=== PATIENT | male | born 1950 | race Caucasian/White ===

== ENCOUNTER 2017-03-28 00:49 | Emergency (ER) | payer MEDICARE ==
[~2017-03-28] VITALS: Ht 188 cm; Wt 90.0 kg
[~2017-03-28 00:49] MED LIST: ASPI-496 PO; ASPI-515 PO; CLOP75TA22 PO; DEXA2TAB PO; FAMO-79 PO; GEMF600T3 PO; HYDR-3240 PO; LEVE500T53 PO; METO25TA35 PO; MILK THISTLE PO; MULT1TAB60 PO; NIAC500T PO; OMEP40CA3 PO; OXYC-302 PO; TAMS0.4C2 PO; UBID100C11 PO; UBID100C24 PO; VITA1TAB3 PO
[2017-03-28] MEDS ORDERED: ASPI81TA50 PO (01:09)
[2017-03-28] MEDS ORDERED: LORA10TA72 PO (01:09)
[2017-03-28] MEDS ORDERED: MORPHINE SULFATE 4 MG/ML, 1ML IVPush PRN (01:30)
[2017-03-28] MEDS ORDERED: ONDANSETRON 2MG/ML, 2ML IVPush ONE (01:30)
[2017-03-28] MEDS ORDERED: MORPHINE SULFATE 4 MG/ML, 1ML ONE (01:30)
[2017-03-28] MEDS ORDERED: ONDANSETRON 2MG/ML, 2ML ONE (01:31)
[2017-03-28 01:48] LABS: ASPARTATE AMINO TRANSFERASE 11 U/L (15-37); BLOOD UREA NITROGEN 13 mg/dL (7-18)
[2017-03-28 04:10] VITALS: BP 142/89
[2017-03-28] MEDS ORDERED: OXYcodone/APAP 5/325MG TABLET ONE (04:12)
[2017-03-28] MEDS ORDERED: OXYcodone/APAP 5/325MG TABLET PO ONE (04:30)
== END 2017-03-28 04:18 | disposition home or self-care (01) ==
LOC: ED 02:12
DX: K40.91 Unilateral inguinal hernia, without obstruction or gangrene, recurrent (principal); R10.32 Left lower quadrant pain; I10 Essential (primary) hypertension
CPT/HCPCS: 36415; 74176; 80053; 81003; 83690; 85025; 96374; 96375; 99285; J2405

== ENCOUNTER 2017-04-05 13:28 | Day surgery (SDC) | payer MEDICARE ==
[~2017-04-05] VITALS: Ht 188 cm; Wt 89.5 kg
[~2017-04-05 13:28] MED LIST changes: +ASPI81TA50 PO; +GLUCOSAMINE PO; +LORA-702 PO; +LORA10TA72 PO; +MAGNESIUM PO; +METO25TA91 PO; +OXYC-229 PO; +POTASSIUM PO
[2017-04-05] MEDS ORDERED: LACTATED RINGERS 1,000 ML IV SCH (13:51)
[2017-04-05 14:10] VITALS: BP 159/102
[2017-04-05] MEDS ORDERED: EPINEPHRINE 1 MG/ML, 1ML ONE (14:12)
[2017-04-05] MEDS ORDERED: BUPIVACAINE/PF 0.5% ONE (14:12)
[2017-04-05 14:18] VITALS: BP 156/103
[2017-04-05] MEDS ORDERED: DEXAMETHASONE 4 MG/ML, 1ML ONE (15:09)
[2017-04-05] MEDS ORDERED: CEFAZOLIN 1,000 MG ONE (15:09)
[2017-04-05] MEDS ORDERED: PROPOFOL 10 MG/ML, 20ML ONE (15:09)
[2017-04-05] MEDS ORDERED: ROCURONIUM 10 MG/ML ONE (15:09)
[2017-04-05] MEDS ORDERED: ONDANSETRON 2MG/ML, 2ML ONE (15:09)
[2017-04-05] MEDS ORDERED: FENTANYL PF 100 MCG/2ML ONE ×2 (15:10→16:35)
[2017-04-05] MEDS ORDERED: HYDROmorphone 1 MG/ML, 1ML ONE ×2 (15:10→17:12)
[2017-04-05] MEDS ORDERED: hydrALAzine 20 MG/ML, 1ML IV PRN (16:00)
[2017-04-05] MEDS ORDERED: OXYcodone 5 MG/5 ML ORAL.SOL UDC PO PRN (16:00)
[2017-04-05] MEDS ORDERED: MIDAZOLAM 1 MG/ML, 2ML IV PRN (16:00)
[2017-04-05] MEDS ORDERED: MEPERIDINE/PF 25MG/0.5ML IVPush PRN (16:00)
[2017-04-05] MEDS ORDERED: ONDANSETRON 2MG/ML, 2ML IVPush PRN (16:00)
[2017-04-05] MEDS ORDERED: PROMETHAZINE 25 MG/ML, 1ML IV PRN (16:00)
[2017-04-05] MEDS ORDERED: OXYcodone 5 MG/5 ML ORAL.SOL UDC ONE (16:35)
[2017-04-05] MEDS: FENTANYL PF 100 MCG/2ML IV PRN ×2 (16:38→16:52)
[2017-04-05] MEDS ORDERED: LABETALOL 5MG/ML, 20ML ONE (17:03)
[2017-04-05] MEDS: LABETALOL 5MG/ML, 20ML IV PRN ×3 (17:06→17:32)
[2017-04-05] MEDS: HYDROmorphone 1 MG/ML, 1ML IV PRN ×2 (17:14→17:23)
[2017-04-05] MEDS ORDERED: hydrALAzine 20 MG/ML, 1ML ONE (17:34)
[2017-04-05] MEDS ORDERED: METOPROLOL SUCCINATE 25 MG TAB.ER.24H PO ONE ×2 (19:30)
== END 2017-04-05 20:05 ==
LOC: STAR 13:28 → OUT 20:05
PROVIDERS: ATTEND Surgery
DX: K40.90 Unilateral inguinal hernia, without obstruction or gangrene, not specified as recurrent (principal); K43.9 Ventral hernia without obstruction or gangrene; D17.6 Benign lipomatous neoplasm of spermatic cord; I10 Essential (primary) hypertension; Z87.891 Personal history of nicotine dependence; K21.9 Gastro-esophageal reflux disease without esophagitis; Z91.09 Other allergy status, other than to drugs and biological substances
CPT/HCPCS: 49650; 49652; 93005; C1781; J0171; J0360; J0690; J1100; J1170; J2405; J2704; J3010; J3490; J7120; S2900

== ENCOUNTER → 2018-09-02 | Outpatient (CLI) | payer MEDICARE ==
[~2018-09-02] MED LIST changes: -CLOP75TA22 PO; +CLOP75TA52 PO; -GEMF600T3 PO; +GEMF600T4 PO; -OXYC-229 PO; +OXYC-307 PO; -UBID100C11 PO; +UBID100C41 PO
== END | disposition home or self-care (01) ==
LOC: CFH 07:55
PROVIDERS: ATTEND Internal Medicine Cardiovascular Disease
DX: I10 Essential (primary) hypertension (principal); Z98.61 Coronary angioplasty status
CPT/HCPCS: 78452; 93017; A9502

== ENCOUNTER 2019-12-08 20:14 | Inpatient (IN) | payer MEDICARE ==
[~2019-12-08] VITALS: Ht 188 cm; Wt 92.0 kg
[~2019-12-08 20:14] MED LIST changes: -GEMF600T4 PO; +GEMF600T8 PO
[2019-12-08 20:40] LABS: BASOPHILS # (AUTO) 0.05 x10^3/uL (0-0.1); BASOPHILS % (AUTO) 1 % (0-1); EOSINOPHILS # (AUTO) 0.06 x10^3/uL (0-0.4); EOSINOPHILS % (AUTO) 1 % (1-7); LYMPHOCYTES % (AUTO) 39 % (22-44); MD NO; MEAN CORPUSCULAR HEMOGLOBIN 33.9 pg (27.5-34.5); MEAN CORPUSCULAR HGB CONC 34.2 g/dL (33.2-36.2); MEAN CORPUSCULAR VOLUME 99.1 fL (81-97); MEAN PLATELET VOLUME 7.2 fL (7.4-10.4); MONOCYTES # (AUTO) 0.67 x10^3/uL (0.2-0.8); MONOCYTES % (AUTO) 10 % (2-9); NEUTROPHILS # (AUTO) 3.43 x10^3/uL (1.8-6.8); NEUTROPHILS % (AUTO) 50 % (42-75); PLATELET COUNT 197 x10^3/uL (130-400); RED BLOOD COUNT 4.59 x10^6/uL (4.38-5.82); RED CELL DISTRIBUTION WIDTH 15.2 % (9.4-14.8)
[2019-12-08 20:51] LABS: ALANINE AMINOTRANSFERASE 128 U/L (12-78); ALBUMIN 4.3 g/dL (3.4-5.0); ANION GAP 10 mmol/L (5-15); CALCIUM 8.8 mg/dL (8.5-10.1); CHLORIDE 105 mmol/L (98-107); CREATININE 0.83 mg/dL (0.7-1.3)
[2019-12-08 20:55] LABS: ALKALINE PHOSPHATASE 67 U/L (45-117); BILIRUBIN,TOTAL 1.3 mg/dL (0.2-1.0); TROPONIN I < 0.015 ng/mL (0.000-0.045)
--- NOTE | 2019-12-08 22:58 | NUR ---
PT RESTING IN BED, PT HAS NO COMPLAINTS AT THIS TIME.
[2019-12-09] MEDS: SODIUM CHLORIDE 0.9% 1,000 ML IV SCH ×2 (00:16→10:16)
[2019-12-09] MEDS ORDERED: ONDANSETRON ODT 4 MG PO PRN (00:30)
[2019-12-09] MEDS ORDERED: POLYETHYLENE GLYCOL 17 GM PACKET PO PRN (00:30)
[2019-12-09] MEDS ORDERED: BISACODYL 10 MG SUPP PR PRN (00:30)
--- NOTE | 2019-12-09 01:13 | NUR ---
shavon baxter pt
[2019-12-09] MEDS: THIAMINE 100MG TABLET PO SCH ×2 (02:02→08:07)
[2019-12-09 03:13] VITALS: BP 137/89
[2019-12-09 06:13] VITALS: BP 113/69
[2019-12-09] MEDS ORDERED: LEVETIRACETAM 500 MG TABLET ONE (08:18)
[2019-12-09] MEDS ORDERED: LORazepam 2 MG/ML, 1ML IV PRN ×5 (08:30)
[2019-12-09] MEDS ORDERED: MULTIVITAMIN 1 TABLET PO SCH (09:00)
[2019-12-09] MEDS ORDERED: FOLIC ACID 1 MG TABLET PO SCH (09:00)
[2019-12-09] MEDS ORDERED: SENNA/DOCUSATE TABLET PO SCH (09:00)
[2019-12-09] MEDS ORDERED: METOPROLOL SUCCINATE 25 MG TAB.ER.24H PO SCH (09:00)
[2019-12-09] MEDS ORDERED: GEMFIBROZIL 600 MG TABLET PO SCH (09:00)
[2019-12-09] MEDS ORDERED: OMEPRAZOLE 20 MG CAPSULE.DR PO SCH (09:00)
[2019-12-09] MEDS ORDERED: LEVETIRACETAM 500 MG TABLET PO SCH (09:00)
[2019-12-09] MEDS ORDERED: TAMSULOSIN 0.4 MG CAP.ER.24H PO SCH (09:00)
[2019-12-09 09:24] LABS: ALBUMIN 4.2 g/dL (3.4-5.0); BILIRUBIN, DIRECT 0.4 mg/dL (0.1-0.2)
[2019-12-09 09:26] LABS: BILIRUBIN,INDIRECT 1.3 mg/dL (0.0-2.0); BILIRUBIN,TOTAL 1.7 mg/dL (0.2-1.0); TOTAL PROTEIN 8.5 g/dL (6.4-8.2)
[2019-12-09 12:06] VITALS: BP 145/80
== END 2019-12-09 12:23 | disposition left against medical advice (07) | DRG 64 ==
LOC: ED 20:25 → EDIP 23:32 → 4WST 12-09 01:03
PROVIDERS: ADMIT Internal Medicine; ATTEND Hospitalist
DX: I62.01 Nontraumatic acute subdural hemorrhage (principal); J96.01 Acute respiratory failure with hypoxia; F10.220 Alcohol dependence with intoxication, uncomplicated; F19.10 Other psychoactive substance abuse, uncomplicated; E78.5 Hyperlipidemia, unspecified; I25.10 Atherosclerotic heart disease of native coronary artery without angina pectoris; G31.2 Degeneration of nervous system due to alcohol; I10 Essential (primary) hypertension; Y90.8 Blood alcohol level of 240 mg/100 ml or more; I62.03 Nontraumatic chronic subdural hemorrhage; N40.0 Benign prostatic hyperplasia without lower urinary tract symptoms; Z87.891 Personal history of nicotine dependence; Z95.5 Presence of coronary angioplasty implant and graft; Z63.8 Other specified problems related to primary support group
CPT/HCPCS: 36415; 70450; 71045; 80053; 80076; 80307; 82607; 83880; 84484; 85025; 93005; J7030

== ENCOUNTER 2020-01-16 17:30 | Inpatient (IN) | payer MEDICARE ==
[~2020-01-16] VITALS: Ht 188 cm; Wt 82.9 kg
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
--- NOTE | 2020-01-16 18:14 | NUR ---
TRISHA CANDELARIA TO ROOM FOR EVAL
[2020-01-16 19:01] LABS: ALANINE AMINOTRANSFERASE 190 U/L (12-78); ALBUMIN 3.9 g/dL (3.4-5.0); ANION GAP 6 mmol/L (5-15); CALCIUM 8.4 mg/dL (8.5-10.1); CHLORIDE 105 mmol/L (98-107); CREATININE 0.89 mg/dL (0.7-1.3)
[2020-01-16 19:06] LABS: ALKALINE PHOSPHATASE 75 U/L (45-117); BASOPHILS # (AUTO) 0.02 x10^3/uL (0-0.1); BASOPHILS % (AUTO) 1 % (0-1); BILIRUBIN,TOTAL 0.9 mg/dL (0.2-1.0); EOSINOPHILS # (AUTO) 0.02 x10^3/uL (0-0.4); EOSINOPHILS % (AUTO) 0 % (1-7); LYMPHOCYTES # (AUTO) 1.17 x10^3/uL (1-3.4); LYMPHOCYTES % (AUTO) 29 % (22-44); MD NO; MEAN CORPUSCULAR HEMOGLOBIN 34.6 pg (27.5-34.5); MEAN CORPUSCULAR VOLUME 101.8 fL (81-97); MEAN PLATELET VOLUME 6.9 fL (7.4-10.4); MONOCYTES % (AUTO) 12 % (2-9); NEUTROPHILS # (AUTO) 2.33 x10^3/uL (1.8-6.8); NEUTROPHILS % (AUTO) 58 % (42-75); PLATELET COUNT 126 x10^3/uL (130-400); RED BLOOD COUNT 3.96 x10^6/uL (4.38-5.82); RED CELL DISTRIBUTION WIDTH 14.1 % (9.4-14.8); TOTAL PROTEIN 8.4 g/dL (6.4-8.2); TROPONIN I < 0.015 ng/mL (0.000-0.045)
[2020-01-16 19:11] LABS: INTERNATIONAL NORMALIZED RATIO 0.95 (0.93-1.1); PROTHROMBIN TIME 10.1 Seconds (9.6-11.5)
[2020-01-16 19:18] LABS: SALICYLATE LEVEL < 1.7 mg/dL (2.8-20.0)
--- NOTE | 2020-01-16 19:36 | NUR ---
NEURO SURG PAGED.
--- NOTE | 2020-01-16 20:14 | NUR ---
MD LUIS ENRIQUE TO ROOM
[2020-01-16] MEDS ORDERED: SODIUM CHLORIDE FLUSH 10ML SYR IVF PRN (20:30)
--- NOTE | 2020-01-16 20:59 | NUR ---
ATTEMPTED TO CALL REPORT X1
[2020-01-16] MEDS ORDERED: SODIUM CHLORIDE FLUSH 10ML SYR IVF ONE (21:00)
[2020-01-16] MEDS ORDERED: ONDANSETRON 2MG/ML, 2ML IVPush PRN (21:00)
--- NOTE | 2020-01-16 21:15 | NUR ---
REPORT GIVEN TO MEENAKSHI LOPEZ
[2020-01-16 21:51] VITALS: BP 145/97
[2020-01-16] MEDS: LEVETIRACETAM 500 MG in SODIUM CHLORIDE 0.9% 100 ML IV SCH (22:28)
[2020-01-17 00:05] VITALS: BP 122/75
[2020-01-17 04:02] LABS: AMPHETAMINE SCREEN, URINE Negative (Negative); BARBITURATE SCREEN, URINE Negative (Negative); BENZODIAZEPINE SCREEN, URINE Negative (Negative); CANNABINOID SCREEN, URINE Negative (Negative); COCAINE SCREEN, URINE Negative (Negative); METHADONE SCREEN, URINE Negative (Negative); OPIATE SCREEN, URINE Negative (Negative)
[2020-01-17 04:23] LABS: BASOPHILS # (AUTO) 0.03 x10^3/uL (0-0.1); BASOPHILS % (AUTO) 1 % (0-1); EOSINOPHILS % (AUTO) 2 % (1-7); LYMPHOCYTES # (AUTO) 1.22 x10^3/uL (1-3.4); LYMPHOCYTES % (AUTO) 28 % (22-44); MD NO; MEAN CORPUSCULAR HEMOGLOBIN 34.4 pg (27.5-34.5); MEAN CORPUSCULAR HGB CONC 33.5 g/dL (33.2-36.2); MEAN CORPUSCULAR VOLUME 102.7 fL (81-97); MONOCYTES # (AUTO) 0.57 x10^3/uL (0.2-0.8); MONOCYTES % (AUTO) 13 % (2-9); NEUTROPHILS # (AUTO) 2.48 x10^3/uL (1.8-6.8); NEUTROPHILS % (AUTO) 56 % (42-75); PLATELET COUNT 116 x10^3/uL (130-400); RED BLOOD COUNT 3.79 x10^6/uL (4.38-5.82); RED CELL DISTRIBUTION WIDTH 13.6 % (9.4-14.8)
[2020-01-17 04:35] LABS: ANION GAP 10 mmol/L (5-15); CALCIUM 8.3 mg/dL (8.5-10.1); CHLORIDE 106 mmol/L (98-107)
[2020-01-17 06:24] VITALS: BP 167/99
[2020-01-17] MEDS: LEVETIRACETAM 500 MG in SODIUM CHLORIDE 0.9% 100 ML IV SCH ×2 (10:38→21:12)
[2020-01-17] MEDS ORDERED: BACITRACIN 50,000 UNIT ONE (10:47)
[2020-01-17] MEDS ORDERED: THROMBIN 20,000 UNIT VIAL TP ONE (10:47)
[2020-01-17] MEDS ORDERED: BUPIVACAINE/PF-EPI 0.5% 1:200K ONE (10:47)
[2020-01-17] MEDS ORDERED: CEFAZOLIN 1,000 MG IM SCH (11:00)
[2020-01-17] MEDS ORDERED: PROPOFOL 10 MG/ML, 100ML IV ONE (11:11)
[2020-01-17] MEDS ORDERED: DEXAMETHASONE 4 MG/ML, 1ML ONE (11:11)
[2020-01-17] MEDS ORDERED: CEFAZOLIN 1,000 MG ONE (11:11)
[2020-01-17] MEDS ORDERED: SUCCINYLCHOLINE 20 MG/ML, 10ML ONE (11:11)
[2020-01-17] MEDS ORDERED: ONDANSETRON 2MG/ML, 2ML ONE (11:11)
[2020-01-17] MEDS ORDERED: METOPROLOL 1 MG/ML, 5ML ONE (11:11)
[2020-01-17] MEDS ORDERED: MIDAZOLAM 1 MG/ML, 2ML ONE ×2 (11:12)
[2020-01-17] MEDS ORDERED: FENTANYL PF 100 MCG/2ML ONE (11:13)
[2020-01-17] MEDS: CEFAZOLIN PMX 1GM/50ML 50 ML IV SCH ×2 (11:30→19:27)
[2020-01-17] MEDS ORDERED: PROMETHAZINE 25 MG/ML, 1ML IV PRN (12:00)
[2020-01-17] MEDS ORDERED: HYDROmorphone 2 MG/ML, 1ML IVPush PRN (12:00)
[2020-01-17] MEDS ORDERED: hydrALAzine 20 MG/ML, 1ML IV PRN (12:00)
[2020-01-17] MEDS ORDERED: OXYcodone 5 MG/5 ML ORAL.SOL UDC PO PRN (12:00)
[2020-01-17] MEDS ORDERED: LABETALOL 5MG/ML, 20ML IV PRN (12:00)
[2020-01-17] MEDS ORDERED: ALBUTEROL SULFATE 2.5 MG/3 ML NPPB PRN (12:00)
[2020-01-17] MEDS ORDERED: LORazepam 2 MG/ML, 1ML IVPush PRN (12:00)
[2020-01-17] MEDS ORDERED: ACETAMINOPHEN 325 MG TABLET PO PRN (12:00)
[2020-01-17] MEDS ORDERED: MEPERIDINE/PF 25MG/0.5ML IVPush PRN (12:00)
[2020-01-17] MEDS ORDERED: FENTANYL PF 100 MCG/2ML IV PRN (12:00)
[2020-01-17] MEDS ORDERED: KETOROLAC 30 MG/1 ML IV PRN (12:00)
[2020-01-17] MEDS ORDERED: LABETALOL 5MG/ML, 20ML IVPush PRN (14:00)
[2020-01-17] MEDS: ENALAPRILAT 1.25 MG/ML, 2ML IV PRN (14:30)
[2020-01-17] MEDS ORDERED: POTASSIUM CHLORIDE 20 MEQ TAB.ER.PRT PO ONE (14:30)
[2020-01-17] MEDS ORDERED: THIAMINE 200 MG in SODIUM CHLORIDE 0.9% 50 ML IV ONE (17:00)
[2020-01-17] MEDS: CHLORDIAZEPOXIDE 25 MG CAPSULE PO SCH ×2 (17:45→20:13)
[2020-01-17] MEDS: OXYcodone/APAP 5/325MG TABLET PO PRN (20:13)
[2020-01-17] MEDS: LORazepam 2 MG/ML, 1ML IVPush PRN ×2 (21:15→23:47)
[2020-01-18] MEDS: CEFAZOLIN PMX 1GM/50ML 50 ML IV SCH ×3 (04:28→20:01)
[2020-01-18] MEDS: LORazepam 2 MG/ML, 1ML IVPush PRN ×4 (04:29→23:02)
[2020-01-18] MEDS: OXYcodone/APAP 5/325MG TABLET PO PRN ×2 (04:29→17:12)
[2020-01-18 04:33] LABS: BASOPHILS # (AUTO) 0.02 x10^3/uL (0-0.1); BASOPHILS % (AUTO) 0 % (0-1); EOSINOPHILS # (AUTO) 0.01 x10^3/uL (0-0.4); EOSINOPHILS % (AUTO) 0 % (1-7); LYMPHOCYTES # (AUTO) 1.31 x10^3/uL (1-3.4); LYMPHOCYTES % (AUTO) 15 % (22-44); MD NO; MEAN CORPUSCULAR HEMOGLOBIN 35.2 pg (27.5-34.5); MEAN CORPUSCULAR HGB CONC 34.3 g/dL (33.2-36.2); MEAN CORPUSCULAR VOLUME 102.6 fL (81-97); MEAN PLATELET VOLUME 7.5 fL (7.4-10.4); MONOCYTES # (AUTO) 1.07 x10^3/uL (0.2-0.8); MONOCYTES % (AUTO) 13 % (2-9); NEUTROPHILS # (AUTO) 6.19 x10^3/uL (1.8-6.8); NEUTROPHILS % (AUTO) 72 % (42-75); PLATELET COUNT 122 x10^3/uL (130-400); RED BLOOD COUNT 3.77 x10^6/uL (4.38-5.82); RED CELL DISTRIBUTION WIDTH 13.7 % (9.4-14.8)
[2020-01-18 04:40] LABS: ALANINE AMINOTRANSFERASE 135 U/L (12-78); ALBUMIN 3.3 g/dL (3.4-5.0); ANION GAP 6 mmol/L (5-15); CHLORIDE 102 mmol/L (98-107); CREATININE 0.93 mg/dL (0.7-1.3)
[2020-01-18 04:43] LABS: ALKALINE PHOSPHATASE 69 U/L (45-117); BILIRUBIN,TOTAL 1.8 mg/dL (0.2-1.0); TOTAL PROTEIN 7.5 g/dL (6.4-8.2)
[2020-01-18] MEDS: THIAMINE 100 MG in SODIUM CHLORIDE 0.9% 50 ML IV SCH (08:29)
[2020-01-18] MEDS: TAMSULOSIN 0.4 MG CAP.ER.24H PO SCH (08:29)
[2020-01-18] MEDS: CHLORDIAZEPOXIDE 25 MG CAPSULE PO SCH ×3 (08:29→20:01)
[2020-01-18] MEDS: LEVETIRACETAM 500 MG in SODIUM CHLORIDE 0.9% 100 ML IV SCH ×2 (09:35→21:10)
[2020-01-19] MEDS: LORazepam 2 MG/ML, 1ML IVPush PRN ×2 (01:29→18:52)
[2020-01-19] MEDS: CEFAZOLIN PMX 1GM/50ML 50 ML IV SCH (03:37)
[2020-01-19] MEDS: OXYcodone/APAP 5/325MG TABLET PO PRN ×3 (03:48→22:50)
[2020-01-19] MEDS: ENALAPRILAT 1.25 MG/ML, 2ML IV PRN (05:41)
[2020-01-19 05:42] VITALS: BP 157/94
[2020-01-19] MEDS: THIAMINE 100 MG in SODIUM CHLORIDE 0.9% 50 ML IV SCH (08:58)
[2020-01-19] MEDS: TAMSULOSIN 0.4 MG CAP.ER.24H PO SCH (08:58)
[2020-01-19] MEDS: CHLORDIAZEPOXIDE 25 MG CAPSULE PO SCH ×3 (08:58→22:04)
[2020-01-19] MEDS: LEVETIRACETAM 500 MG in SODIUM CHLORIDE 0.9% 100 ML IV SCH ×2 (10:01→22:03)
[2020-01-20] MEDS: LORazepam 2 MG/ML, 1ML IVPush PRN ×3 (03:01→12:02)
[2020-01-20] MEDS: CHLORDIAZEPOXIDE 25 MG CAPSULE PO SCH ×3 (08:55→19:54)
[2020-01-20] MEDS: TAMSULOSIN 0.4 MG CAP.ER.24H PO SCH (08:55)
[2020-01-20] MEDS: THIAMINE 100 MG in SODIUM CHLORIDE 0.9% 50 ML IV SCH (08:55)
[2020-01-20] MEDS: OXYcodone/APAP 5/325MG TABLET PO PRN ×2 (08:55→19:54)
[2020-01-20] MEDS: LEVETIRACETAM 500 MG in SODIUM CHLORIDE 0.9% 100 ML IV SCH ×2 (09:46→21:37)
[2020-01-20] MEDS: LISINOPRIL 10 MG TABLET PO SCH ×2 (09:46→19:54)
[2020-01-20 18:02] VITALS: BP 163/98
[2020-01-21 01:33] VITALS: BP 155/95
[2020-01-21] MEDS: OXYcodone/APAP 5/325MG TABLET PO PRN (01:36)
[2020-01-21] MEDS: LORazepam 2 MG/ML, 1ML IVPush PRN (06:31)
[2020-01-21 06:34] VITALS: BP 152/85
[2020-01-21] MEDS: LISINOPRIL 10 MG TABLET PO SCH (09:24)
[2020-01-21] MEDS: CHLORDIAZEPOXIDE 25 MG CAPSULE PO SCH (09:24)
[2020-01-21] MEDS: TAMSULOSIN 0.4 MG CAP.ER.24H PO SCH (09:24)
[2020-01-21] MEDS: LEVETIRACETAM 500 MG in SODIUM CHLORIDE 0.9% 100 ML IV SCH ×2 (11:16→21:22)
[2020-01-21] MEDS: THIAMINE 100 MG in SODIUM CHLORIDE 0.9% 50 ML IV SCH (11:53)
[2020-01-21 12:36] VITALS: BP 152/86
[2020-01-21] MEDS ORDERED: LISI-167 PO (14:26)
[2020-01-21] MEDS: ACETAMINOPHEN 325 MG TABLET PO PRN ×2 (17:48→21:46)
[2020-01-21 19:04] VITALS: BP 132/85
[2020-01-21] MEDS: LISINOPRIL 20 MG TABLET PO SCH (21:21)
[2020-01-21] MEDS ORDERED: TEMAZEPAM 15 MG CAPSULE PO ONE (23:00)
[2020-01-22 07:04] VITALS: BP 159/96
[2020-01-22 08:40] VITALS: BP 159/96
[2020-01-22] MEDS: TAMSULOSIN 0.4 MG CAP.ER.24H PO SCH (08:40)
[2020-01-22] MEDS: LISINOPRIL 20 MG TABLET PO SCH ×2 (08:40→21:23)
[2020-01-22] MEDS: THIAMINE 100 MG in SODIUM CHLORIDE 0.9% 50 ML IV SCH (08:41)
[2020-01-22] MEDS: LEVETIRACETAM 500 MG in SODIUM CHLORIDE 0.9% 100 ML IV SCH ×2 (09:36→21:23)
[2020-01-22 13:20] VITALS: BP 134/78
[2020-01-22] MEDS: ACETAMINOPHEN 325 MG TABLET PO PRN (18:36)
[2020-01-22 19:27] VITALS: BP 129/86
[2020-01-22] MEDS ORDERED: DIPHENHYDRAMINE 50 MG CAPSULE PO ONE (21:30)
[2020-01-22] MEDS ORDERED: DIPHENHYDRAMINE 25 MG CAPSULE PO PRN (21:30)
[2020-01-23 00:25] VITALS: BP 133/84
[2020-01-23 07:29] VITALS: BP 159/98
[2020-01-23] MEDS: ACETAMINOPHEN 325 MG TABLET PO PRN ×2 (07:51→12:23)
[2020-01-23] MEDS: LISINOPRIL 20 MG TABLET PO SCH (07:51)
[2020-01-23] MEDS: TAMSULOSIN 0.4 MG CAP.ER.24H PO SCH (07:51)
[2020-01-23] MEDS: THIAMINE 100 MG in SODIUM CHLORIDE 0.9% 50 ML IV SCH (09:04)
[2020-01-23] MEDS: LEVETIRACETAM 500 MG in SODIUM CHLORIDE 0.9% 100 ML IV SCH (09:59)
[2020-01-23] MEDS ORDERED: LEVE500T53 PO (10:24)
[2020-01-23] MEDS ORDERED: THIA100T67 PO (10:24)
[2020-01-23 12:19] VITALS: BP 143/85
== END 2020-01-23 14:50 | DRG 25 ==
LOC: ED 19:45 → EDIP 20:30 → 4WST 21:39 → CCU 01-17 13:35 → 4WST 01-20 17:54 → 4EST 01-21 05:51
PROVIDERS: ADMIT Internal Medicine; ATTEND Family Medicine
PROC: 009400Z Drainage of Intracranial Subdural Space with Drainage Device, Open Approach (ICD-10-PCS; principal; 2020-01-17 10:30)
DX: I62.02 Nontraumatic subacute subdural hemorrhage (principal); G93.5 Compression of brain; F10.231 Alcohol dependence with withdrawal delirium; I62.03 Nontraumatic chronic subdural hemorrhage; E78.5 Hyperlipidemia, unspecified; F10.220 Alcohol dependence with intoxication, uncomplicated; I25.10 Atherosclerotic heart disease of native coronary artery without angina pectoris; R09.02 Hypoxemia; I10 Essential (primary) hypertension; R56.9 Unspecified convulsions; R26.9 Unspecified abnormalities of gait and mobility; Z79.82 Long term (current) use of aspirin; Z79.899 Other long term (current) drug therapy; Z95.5 Presence of coronary angioplasty implant and graft; Z87.891 Personal history of nicotine dependence
CPT/HCPCS: 36415; 70450; 71045; 80048; 80053; 80307; 82140; 82962; 83735; 84484; 85025; 85610; 85730; 87081; 93005; 99285; C1713; G0378; J0690; J1100; J1953; J2250; J2405; J2704; J3010; J3411; J0330; J2060; Q0163

== ENCOUNTER 2020-03-21 11:38 | Inpatient (IN) | payer MEDICARE ==
[~2020-03-21] VITALS: Ht 188 cm; Wt 85.6 kg
[~2020-03-21 11:38] MED LIST changes: +LISI-167 PO; +MULT-449 PO; -MULT1TAB60 PO; +THIA100T67 PO
[2020-03-21] MEDS ORDERED: LORazepam 2 MG/ML, 1ML ONE ×3 (11:44→14:16)
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
--- NOTE | 2020-03-21 12:04 | NUR ---
SZ PADS PLACED. BED IS IN LOWEST POSITION. PT MEDICATED PER MAR
[2020-03-21] MEDS ORDERED: DIAZEPAM 5 MG/ML, 2ML ONE (12:18)
[2020-03-21 12:19] LABS: BASOPHILS # (AUTO) 0.04 x10^3/uL (0-0.1); BASOPHILS % (AUTO) 1 % (0-1); EOSINOPHILS % (AUTO) 0 % (1-7); LYMPHOCYTES # (AUTO) 0.44 x10^3/uL (1-3.4); LYMPHOCYTES % (AUTO) 8 % (22-44); MD NO; MEAN CORPUSCULAR HEMOGLOBIN 34.8 pg (27.5-34.5); MEAN CORPUSCULAR HGB CONC 33.1 g/dL (33.2-36.2); MEAN PLATELET VOLUME 7.2 fL (7.4-10.4); MONOCYTES # (AUTO) 0.59 x10^3/uL (0.2-0.8); MONOCYTES % (AUTO) 10 % (2-9); NEUTROPHILS % (AUTO) 82 % (42-75); PLATELET COUNT 146 x10^3/uL (130-400); RED BLOOD COUNT 3.71 x10^6/uL (4.38-5.82); RED CELL DISTRIBUTION WIDTH 16.2 % (9.4-14.8)
--- NOTE | 2020-03-21 12:28 | NUR ---
PT STILL HAVING SZ LIKE ACTVITY, WAS DIAPHORETIC AND WAS MOANING. PT MOVED TO TRAUMA 4. REPORT GIVEN TO MAAME
[2020-03-21] MEDS ORDERED: LORazepam 2 MG/ML, 1ML IVPush ONE ×3 (12:30)
[2020-03-21] MEDS ORDERED: DIAZEPAM 5 MG/ML, 2ML IV ONE (12:30)
[2020-03-21] MEDS ORDERED: SODIUM CHLORIDE 0.9% 1,000ML IVBOLUS ONE (12:30)
[2020-03-21 12:31] LABS: ANION GAP 19 mmol/L (5-15); CHLORIDE 100 mmol/L (98-107)
[2020-03-21 12:32] LABS: ALANINE AMINOTRANSFERASE 248 U/L (12-78); ALBUMIN 4.2 g/dL (3.4-5.0)
[2020-03-21 12:34] LABS: ALKALINE PHOSPHATASE 82 U/L (45-117); BILIRUBIN,TOTAL 2.9 mg/dL (0.2-1.0); TOTAL PROTEIN 7.8 g/dL (6.4-8.2)
[2020-03-21] MEDS ORDERED: ONDANSETRON 2MG/ML, 2ML ONE (12:43)
--- NOTE | 2020-03-21 12:52 | NUR ---
REPORT RECEIVED FROM AGUSTO ARRIETA. PT MOVED TO RM T3. PT IS DROWSY BYT ROUSES TO VOICE, PT SLIGHTLY CONFUSED WHEN AWOKE, NEEDS RE-ORIENTATION. PT PLACED ON MONITORS, VSS. PT CURRENTLY ABLE TO PROTECT OWN AIRWAY WELL. SEIZURE PADS IN PLACE, PT HOB 45 DEGREES. PT CURRENTLY NOT TREMULOUS. EKG DONE BY TECH. CONT TO MONITOR.
--- NOTE | 2020-03-21 13:13 | NUR ---
PT TO CT.
[2020-03-21] MEDS ORDERED: ONDANSETRON 2MG/ML, 2ML IVPush ONE (13:30)
--- NOTE | 2020-03-21 13:48 | NUR ---
PT MOVED TO ROOM 17. TOOK REPORT FROM MAAME ARRIETA. ASSUME CARE AT THIS TIME. MD AT BEDSIDE.
--- NOTE | 2020-03-21 13:48 | NUR ---
PT BACK FROM CT AND MOVED TO ER RM 17. PT REMAINS DROWSY BUT ROUSABLE BY VOICE. PT ABLE TO ANSWER QUESTIONS APPROPRIATELY, MAINTAINING OWN AIRWAY WELL. PT ON MONITORS, VSS. SEIZURE PADS IN PLACE. REPORT GIVEN TO NOLAN ARRIETA.
[2020-03-21] MEDS ORDERED: OXYcodone IR 5MG TABLET PO PRN (15:30)
[2020-03-21] MEDS ORDERED: ONDANSETRON 2MG/ML, 2ML IVPush PRN (15:30)
[2020-03-21] MEDS ORDERED: POLYETHYLENE GLYCOL 17 GM PACKET PO PRN (15:30)
[2020-03-21] MEDS: SODIUM CHLORIDE 0.9% 1,000 ML IV SCH (15:55)
[2020-03-21] MEDS ORDERED: LORazepam 2 MG/ML, 1ML IV PRN ×5 (16:00)
[2020-03-21] MEDS ORDERED: LORazepam 1MG TABLET PO PRN ×2 (16:00)
[2020-03-21] MEDS ORDERED: LACTULOSE 10 GM/15 ML UDC PO PRN (16:00)
[2020-03-21] MEDS ORDERED: LORazepam 0.5MG TABLET PO PRN (16:00)
[2020-03-21 16:09] VITALS: BP 163/96
[2020-03-21] MEDS: CHLORDIAZEPOXIDE 25 MG CAPSULE PO SCH ×2 (16:18→20:59)
[2020-03-21] MEDS: THIAMINE 200 MG, MVI ADULT 10 ML, FOLIC ACID 1 MG in D5%-0.9% NACL 1,000 ML IV SCH (16:44)
[2020-03-21] MEDS ORDERED: THIAMINE 200 MG in SODIUM CHLORIDE 0.9% 50 ML IV ONE (17:00)
[2020-03-21 20:57] VITALS: BP 146/86
[2020-03-21] MEDS: LISINOPRIL 20 MG TABLET PO SCH (20:59)
[2020-03-21] MEDS: LEVETIRACETAM 500 MG TABLET PO SCH (20:59)
[2020-03-22] MEDS: SODIUM CHLORIDE 0.9% 1,000 ML IV SCH (02:41)
[2020-03-22 03:18] VITALS: BP 135/88
[2020-03-22] MEDS: CHLORDIAZEPOXIDE 25 MG CAPSULE PO SCH ×2 (05:21→12:02)
[2020-03-22 05:41] LABS: BASOPHILS # (AUTO) 0.01 x10^3/uL (0-0.1); BASOPHILS % (AUTO) 0 % (0-1); EOSINOPHILS # (AUTO) 0.05 x10^3/uL (0-0.4); EOSINOPHILS % (AUTO) 1 % (1-7); LYMPHOCYTES # (AUTO) 1.23 x10^3/uL (1-3.4); LYMPHOCYTES % (AUTO) 20 % (22-44); MD NO; MEAN CORPUSCULAR HEMOGLOBIN 35.1 pg (27.5-34.5); MEAN CORPUSCULAR HGB CONC 33.4 g/dL (33.2-36.2); MEAN PLATELET VOLUME 8.1 fL (7.4-10.4); MONOCYTES % (AUTO) 15 % (2-9); NEUTROPHILS # (AUTO) 3.82 x10^3/uL (1.8-6.8); NEUTROPHILS % (AUTO) 64 % (42-75); PLATELET COUNT 129 x10^3/uL (130-400); RED BLOOD COUNT 3.58 x10^6/uL (4.38-5.82); RED CELL DISTRIBUTION WIDTH 16.2 % (9.4-14.8)
[2020-03-22 05:51] LABS: ALBUMIN 3.9 g/dL (3.4-5.0); CALCIUM 8.6 mg/dL (8.5-10.1); CHLORIDE 104 mmol/L (98-107)
[2020-03-22 06:05] LABS: % IRON SATURATION 78 % (20-55); ALANINE AMINOTRANSFERASE 189 U/L (12-78); ALKALINE PHOSPHATASE 72 U/L (45-117); ANION GAP 8 mmol/L (5-15); BILIRUBIN,TOTAL 3.6 mg/dL (0.2-1.0); CREATINE KINASE, TOTAL 207 U/L (39-308); CREATININE 0.88 mg/dL (0.7-1.3); IRON LEVEL 140 mcg/dL (65-175); TOTAL IRON BINDING CAPACITY 180 mcg/dL (250-450); TOTAL PROTEIN 7.5 g/dL (6.4-8.2)
[2020-03-22 07:40] VITALS: BP 129/78
[2020-03-22] MEDS: LEVETIRACETAM 500 MG TABLET PO SCH (09:25)
[2020-03-22] MEDS: TAMSULOSIN 0.4 MG CAP.ER.24H PO SCH (09:25)
[2020-03-22] MEDS: LISINOPRIL 20 MG TABLET PO SCH ×2 (09:25→21:23)
[2020-03-22 12:28] VITALS: BP 121/76
[2020-03-22] MEDS: THIAMINE 200 MG, MVI ADULT 10 ML, FOLIC ACID 1 MG in D5%-0.9% NACL 1,000 ML IV SCH (15:30)
[2020-03-22] MEDS ORDERED: PHARMACY INSTRUCTION MC PRN ×4 (17:00)
[2020-03-22] MEDS ORDERED: PHENOBARBITAL SODIUM 820 MG in SODIUM CHLORIDE 0.9% 50 ML IVPB ONE (17:30)
[2020-03-22] MEDS: LEVETIRACETAM 500 MG in SODIUM CHLORIDE 0.9% 100 ML IV SCH (18:22)
[2020-03-22] MEDS ORDERED: OXYcodone IR 5MG TABLET PO PRN (19:30)
[2020-03-22] MEDS ORDERED: PLEASE ENTER DRUG ALLERGIES MC SCH (23:00)
[2020-03-22] MEDS ORDERED: PHENOBARBITAL SODIUM IVPB ONE (23:30)
[2020-03-22] MEDS ORDERED: SODIUM CHLORIDE 0.9% IVPB ONE (23:30)
[2020-03-22 23:53] LABS: AMPHETAMINE SCREEN, URINE Negative (Negative); BARBITURATE SCREEN, URINE Positive (Negative); BENZODIAZEPINE SCREEN, URINE Positive (Negative); CANNABINOID SCREEN, URINE Negative (Negative); COCAINE SCREEN, URINE Negative (Negative); METHADONE SCREEN, URINE Negative (Negative); OPIATE SCREEN, URINE Negative (Negative)
[2020-03-23 04:35] LABS: BASOPHILS # (AUTO) 0.03 x10^3/uL (0-0.1); BASOPHILS % (AUTO) 1 % (0-1); EOSINOPHILS # (AUTO) 0.08 x10^3/uL (0-0.4); EOSINOPHILS % (AUTO) 1 % (1-7); LYMPHOCYTES # (AUTO) 0.96 x10^3/uL (1-3.4); LYMPHOCYTES % (AUTO) 15 % (22-44); MD NO; MEAN CORPUSCULAR HEMOGLOBIN 35.6 pg (27.5-34.5); MEAN CORPUSCULAR HGB CONC 33.6 g/dL (33.2-36.2); MEAN PLATELET VOLUME 7.7 fL (7.4-10.4); MONOCYTES # (AUTO) 0.92 x10^3/uL (0.2-0.8); MONOCYTES % (AUTO) 15 % (2-9); NEUTROPHILS # (AUTO) 4.26 x10^3/uL (1.8-6.8); NEUTROPHILS % (AUTO) 68 % (42-75); PLATELET COUNT 120 x10^3/uL (130-400); RED BLOOD COUNT 3.56 x10^6/uL (4.38-5.82); RED CELL DISTRIBUTION WIDTH 15.5 % (9.4-14.8)
[2020-03-23 04:45] VITALS: BP 151/88
[2020-03-23 04:45] LABS: ALANINE AMINOTRANSFERASE 154 U/L (12-78); ALBUMIN 3.5 g/dL (3.4-5.0); ANION GAP 8 mmol/L (5-15); CALCIUM 8.1 mg/dL (8.5-10.1); CHLORIDE 103 mmol/L (98-107); CREATININE 0.61 mg/dL (0.7-1.3)
[2020-03-23 04:55] LABS: ALKALINE PHOSPHATASE 76 U/L (45-117); BILIRUBIN,TOTAL 2.7 mg/dL (0.2-1.0); FREE T4 (FREE THYROXINE) 0.92 ng/dL (0.76-1.46)
[2020-03-23] MEDS: LEVETIRACETAM 500 MG in SODIUM CHLORIDE 0.9% 100 ML IV SCH ×2 (05:46→18:57)
[2020-03-23] MEDS ORDERED: PHENOBARBITAL SODIUM 65 MG/ML, 1ML IM SCH (06:00)
[2020-03-23] MEDS: PHENOBARBITAL SODIUM 65 MG/ML, 1ML IM SCH ×2 (07:38→20:43)
[2020-03-23] MEDS: TAMSULOSIN 0.4 MG CAP.ER.24H PO SCH (07:52)
[2020-03-23] MEDS: LISINOPRIL 20 MG TABLET PO SCH ×2 (07:52→20:43)
[2020-03-23] MEDS ORDERED: SODIUM CHLORIDE 0.9% 1,000 ML IV SCH (16:00)
[2020-03-23] MEDS: THIAMINE 200 MG, MVI ADULT 10 ML, FOLIC ACID 1 MG in D5%-0.9% NACL 1,000 ML IV SCH (18:05)
[2020-03-23 18:35] VITALS: BP 146/82
[2020-03-24 02:07] VITALS: BP 154/88
[2020-03-24 05:22] LABS: ANION GAP 9 mmol/L (5-15); CALCIUM 8.1 mg/dL (8.5-10.1); CHLORIDE 101 mmol/L (98-107); CREATININE 0.75 mg/dL (0.7-1.3)
[2020-03-24] MEDS: LEVETIRACETAM 500 MG in SODIUM CHLORIDE 0.9% 100 ML IV SCH (06:22)
[2020-03-24] MEDS ORDERED: PHENOBARBITAL 20 MG/5 ML ORAL SOL PO SCH (08:00)
[2020-03-24 08:22] VITALS: BP 143/88
[2020-03-24] MEDS: TAMSULOSIN 0.4 MG CAP.ER.24H PO SCH (09:08)
[2020-03-24] MEDS: POTASSIUM CHLORIDE 20 MEQ TAB.ER.PRT PO SCH ×3 (09:08→18:45)
[2020-03-24] MEDS: LISINOPRIL 20 MG TABLET PO SCH ×2 (09:13→20:58)
[2020-03-24] MEDS: PHENOBARBITAL SODIUM 65 MG/ML, 1ML IM SCH ×2 (10:41→20:59)
[2020-03-24] MEDS: THIAMINE 200 MG, MVI ADULT 10 ML, FOLIC ACID 1 MG in D5%-0.9% NACL 1,000 ML IV SCH (15:42)
[2020-03-24 15:56] VITALS: BP 112/73
[2020-03-24 18:41] VITALS: BP 144/88
[2020-03-24] MEDS ORDERED: POTASSIUM CHLORIDE 20 MEQ TAB.ER.PRT ONE (18:43)
[2020-03-24] MEDS ORDERED: ONDANSETRON 2MG/ML, 2ML IVPush PRN (20:30)
[2020-03-24] MEDS ORDERED: LACTULOSE 10 GM/15 ML UDC PO PRN (20:30)
[2020-03-24] MEDS ORDERED: POLYETHYLENE GLYCOL 17 GM PACKET PO PRN (20:30)
[2020-03-24] MEDS: LEVETIRACETAM 500 MG TABLET PO SCH (20:58)
[2020-03-25 01:16] VITALS: BP 112/61
[2020-03-25 05:26] LABS: BASOPHILS # (AUTO) 0.04 x10^3/uL (0-0.1); BASOPHILS % (AUTO) 1 % (0-1); EOSINOPHILS # (AUTO) 0.16 x10^3/uL (0-0.4); EOSINOPHILS % (AUTO) 3 % (1-7); LYMPHOCYTES # (AUTO) 1.23 x10^3/uL (1-3.4); LYMPHOCYTES % (AUTO) 25 % (22-44); MD NO; MEAN CORPUSCULAR HEMOGLOBIN 35.4 pg (27.5-34.5); MEAN CORPUSCULAR HGB CONC 33.7 g/dL (33.2-36.2); MEAN PLATELET VOLUME 7.5 fL (7.4-10.4); MONOCYTES # (AUTO) 0.81 x10^3/uL (0.2-0.8); MONOCYTES % (AUTO) 16 % (2-9); NEUTROPHILS % (AUTO) 55 % (42-75); PLATELET COUNT 156 x10^3/uL (130-400); RED BLOOD COUNT 3.43 x10^6/uL (4.38-5.82); RED CELL DISTRIBUTION WIDTH 15.8 % (9.4-14.8)
[2020-03-25 05:35] LABS: CHLORIDE 106 mmol/L (98-107)
[2020-03-25 05:43] LABS: ALANINE AMINOTRANSFERASE 108 U/L (12-78); ALKALINE PHOSPHATASE 75 U/L (45-117); BILIRUBIN,TOTAL 1.1 mg/dL (0.2-1.0); CALCIUM 8.8 mg/dL (8.5-10.1); CREATININE 0.69 mg/dL (0.7-1.3); TOTAL PROTEIN 6.7 g/dL (6.4-8.2)
[2020-03-25 05:52] LABS: ANION GAP 4 mmol/L (5-15)
[2020-03-25] MEDS ORDERED: POTASSIUM CHLORIDE 20 MEQ TAB.ER.PRT PO SCH (08:00)
[2020-03-25 08:27] VITALS: BP 156/98
[2020-03-25] MEDS ORDERED: FOLIC ACID 1 MG TABLET PO SCH (09:00)
[2020-03-25] MEDS ORDERED: THIAMINE 100MG TABLET PO SCH (09:00)
[2020-03-25] MEDS ORDERED: MULTIVITAMIN 1 TABLET PO SCH (09:00)
[2020-03-25] MEDS: LEVETIRACETAM 500 MG TABLET PO SCH ×2 (09:17→20:17)
[2020-03-25] MEDS: FOLIC ACID 1 MG TABLET PO SCH (09:17)
[2020-03-25] MEDS: THIAMINE 100MG TABLET PO SCH (09:17)
[2020-03-25] MEDS: PHENOBARBITAL 20 MG/5 ML ORAL SOL PO SCH ×2 (09:17→20:21)
[2020-03-25] MEDS: MULTIVITAMIN 1 TABLET PO SCH (09:17)
[2020-03-25] MEDS: TAMSULOSIN 0.4 MG CAP.ER.24H PO SCH (09:17)
[2020-03-25] MEDS: LISINOPRIL 20 MG TABLET PO SCH ×2 (09:18→20:17)
[2020-03-25 12:00] VITALS: BP 110/72
[2020-03-25 19:12] VITALS: BP 113/70
[2020-03-25 20:14] VITALS: BP 119/75
[2020-03-26 00:06] VITALS: BP 129/75
[2020-03-26 06:06] LABS: ANION GAP 6 mmol/L (5-15); CALCIUM 9.2 mg/dL (8.5-10.1); CHLORIDE 103 mmol/L (98-107); CREATININE 0.72 mg/dL (0.7-1.3)
[2020-03-26 06:07] LABS: MEAN CORPUSCULAR HEMOGLOBIN 35.6 pg (27.5-34.5); MEAN CORPUSCULAR HGB CONC 33.3 g/dL (33.2-36.2); MEAN PLATELET VOLUME 7.5 fL (7.4-10.4); PLATELET COUNT 178 x10^3/uL (130-400); RED BLOOD COUNT 3.53 x10^6/uL (4.38-5.82); RED CELL DISTRIBUTION WIDTH 15.8 % (9.4-14.8)
[2020-03-26 06:36] LABS: MD YES
[2020-03-26 06:38] LABS: BASOS#(MANUAL) 0.18 x10^3/uL (0-0.1); BASOS% (MANUAL) 3 % (0-1); EOS#(MANUAL) 0.06 x10^3/uL (0.0-0.4); EOS% (MANUAL) 1 % (1-7); LYMPH#(MANUAL) 1.86 x10^3/uL (1-3.4); LYMPHS% (MANUAL) 31 % (22-44); MONOS% (MANUAL) 20 % (2-9); SEGS% (MANUAL) 45 % (42-75)
[2020-03-26 06:40] LABS: <PLATELET ESTIMATE> ADEQUATE; <PLT MORPHOLOGY> NORMAL PLT MORPH
[2020-03-26 06:45] VITALS: BP 132/85
[2020-03-26] MEDS: THIAMINE 100MG TABLET PO SCH (08:43)
[2020-03-26] MEDS: LISINOPRIL 20 MG TABLET PO SCH (08:43)
[2020-03-26] MEDS: PHENOBARBITAL 20 MG/5 ML ORAL SOL PO SCH (08:44)
[2020-03-26] MEDS: MULTIVITAMIN 1 TABLET PO SCH (08:44)
[2020-03-26] MEDS: TAMSULOSIN 0.4 MG CAP.ER.24H PO SCH (08:44)
[2020-03-26] MEDS: FOLIC ACID 1 MG TABLET PO SCH (08:44)
[2020-03-26] MEDS: LEVETIRACETAM 500 MG TABLET PO SCH (08:44)
[2020-03-26 13:29] VITALS: BP 156/95
[2020-03-27] MEDS ORDERED: PHENOBARBITAL 20 MG/5 ML ORAL SOL PO SCH (08:00)
[2020-03-28] MEDS ORDERED: PHENOBARBITAL 20 MG/5 ML ORAL SOL PO SCH (08:00)
== END 2020-03-26 16:30 | DRG 896 ==
LOC: ED 14:04 → SUATTDRO 15:11 → 5SO 15:19 → CCU 03-22 17:21 → 4WST 03-23 15:33 → UNDODISIN 03-24 12:51
PROVIDERS: ADMIT Internal Medicine; ATTEND Internal Medicine
DX: F10.239 Alcohol dependence with withdrawal, unspecified (principal); G92 Toxic encephalopathy; R65.10 Systemic inflammatory response syndrome (SIRS) of non-infectious origin without acute organ dysfunction; E87.2 Acidosis; D53.9 Nutritional anemia, unspecified; K70.10 Alcoholic hepatitis without ascites; I25.10 Atherosclerotic heart disease of native coronary artery without angina pectoris; E78.5 Hyperlipidemia, unspecified; F10.229 Alcohol dependence with intoxication, unspecified; I10 Essential (primary) hypertension; E11.9 Type 2 diabetes mellitus without complications; E87.6 Hypokalemia; F12.90 Cannabis use, unspecified, uncomplicated; F17.200 Nicotine dependence, unspecified, uncomplicated; F41.9 Anxiety disorder, unspecified; F60.0 Paranoid personality disorder; K76.0 Fatty (change of) liver, not elsewhere classified; N40.0 Benign prostatic hyperplasia without lower urinary tract symptoms; Z79.899 Other long term (current) drug therapy; Z95.818 Presence of other cardiac implants and grafts; Z87.820 Personal history of traumatic brain injury; F31.9 Bipolar disorder, unspecified; Z95.5 Presence of coronary angioplasty implant and graft; Z82.49 Family history of ischemic heart disease and other diseases of the circulatory system; Z83.3 Family history of diabetes mellitus
CPT/HCPCS: 36415; 70450; 71045; 76700; 80048; 80053; 80074; 80307; 82550; 83540; 83550; 83735; 84100; 84439; 84443; 85025; 87081; 93005; 96361; 96374; G0378; J1953; J2405; J2560; J3360; J3411; J7042; J2060; J7030

== ENCOUNTER 2020-05-20 14:13 | Emergency (ER) | payer MEDICARE ==
[~2020-05-20] VITALS: Ht 188 cm; Wt 83.0 kg
[2020-05-20 14:15] VITALS: BP 134/80
[2020-05-20 15:02] LABS: BASOPHILS # (AUTO) 0.05 x10^3/uL (0-0.1); BASOPHILS % (AUTO) 1 % (0-1); EOSINOPHILS % (AUTO) 0 % (1-7); LYMPHOCYTES % (AUTO) 15 % (22-44); MD NO; MEAN CORPUSCULAR HGB CONC 33.6 g/dL (33.2-36.2); MEAN PLATELET VOLUME 6.4 fL (7.4-10.4); MONOCYTES # (AUTO) 0.65 x10^3/uL (0.2-0.8); MONOCYTES % (AUTO) 12 % (2-9); NEUTROPHILS # (AUTO) 3.78 x10^3/uL (1.8-6.8); NEUTROPHILS % (AUTO) 72 % (42-75); PLATELET COUNT 208 x10^3/uL (130-400); RED BLOOD COUNT 3.54 x10^6/uL (4.38-5.82); RED CELL DISTRIBUTION WIDTH 14.4 % (9.4-14.8)
[2020-05-20 15:16] LABS: ALBUMIN 3.8 g/dL (3.4-5.0); ANION GAP 15 mmol/L (5-15); CALCIUM 7.8 mg/dL (8.5-10.1); CHLORIDE 101 mmol/L (98-107)
[2020-05-20 15:21] LABS: CREATININE 0.78 mg/dL (0.7-1.3)
[2020-05-20 15:30] LABS: INTERNATIONAL NORMALIZED RATIO 1.04 (0.93-1.1); PROTHROMBIN TIME 10.7 Seconds (9.6-11.5)
--- NOTE | 2020-05-20 15:34 | NUR ---
PT BACK FROM CT VIA [place]. PT RESTING IN [facility], DOTTIE IN LOWEST POSITION, CALL LIGHT WITHIN REACH. PT EDUCATED TO CALL BEFORE TRYING TO GET UP.
--- NOTE | 2020-05-20 16:45 | NUR ---
SPOKE TO PADILLA AT [facility], PADILLA STATES THEY HAVE BEDS FOR ETOH DETOX AT [facility] FOR PATIENT AND CAN MEET HIM AT THE DOOR. WILL CALL [facility] WHEN PT IS DISCHARGED.
--- NOTE | 2020-05-20 18:55 | NUR ---
PT AMBULATED TO BATHROOM. PT AMBULATED WITH STEADY GAIT, WILL REASSESS IN 30 MINUTES FOR SAFE DISCHARGE.
--- NOTE | 2020-05-20 19:48 | NUR ---
SPOKE TO [place] AT [facility], THEY ARE AWARE THAT THE PT IS ARRIVING VIA CAB.
== END 2020-05-20 19:51 | disposition home or self-care (01) ==
LOC: ED 14:36
DX: F10.220 Alcohol dependence with intoxication, uncomplicated (principal); I10 Essential (primary) hypertension; R53.1 Weakness; R53.83 Other fatigue; Y90.0 Blood alcohol level of less than 20 mg/100 ml
CPT/HCPCS: 36415; 70450; 80048; 80307; 82040; 85025; 85610; 85730; 93005; 99285

== ENCOUNTER 2020-05-22 08:48 | Inpatient (IN) | payer MEDICARE ==
[~2020-05-22] VITALS: Ht 188 cm; Wt 84.5 kg
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
[2020-05-22] MEDS ORDERED: SODIUM CHLORIDE FLUSH 10ML SYR IVF ONE (09:30)
[2020-05-22 09:34] LABS: BASOPHILS # (AUTO) 0.02 x10^3/uL (0-0.1); BASOPHILS % (AUTO) 0 % (0-1); EOSINOPHILS # (AUTO) 0.03 x10^3/uL (0-0.4); EOSINOPHILS % (AUTO) 1 % (1-7); LYMPHOCYTES # (AUTO) 0.91 x10^3/uL (1-3.4); LYMPHOCYTES % (AUTO) 18 % (22-44); MD NO; MEAN CORPUSCULAR HEMOGLOBIN 35.7 pg (27.5-34.5); MEAN CORPUSCULAR HGB CONC 34.4 g/dL (33.2-36.2); MEAN PLATELET VOLUME 7.4 fL (7.4-10.4); MONOCYTES # (AUTO) 0.66 x10^3/uL (0.2-0.8); MONOCYTES % (AUTO) 13 % (2-9); NEUTROPHILS # (AUTO) 3.53 x10^3/uL (1.8-6.8); NEUTROPHILS % (AUTO) 69 % (42-75); PLATELET COUNT 164 x10^3/uL (130-400); RED BLOOD COUNT 3.51 x10^6/uL (4.38-5.82); RED CELL DISTRIBUTION WIDTH 14.5 % (9.4-14.8)
[2020-05-22 09:44] LABS: ALBUMIN 3.9 g/dL (3.4-5.0); ANION GAP 7 mmol/L (5-15); CALCIUM 9.7 mg/dL (8.5-10.1); CHLORIDE 101 mmol/L (98-107)
--- NOTE | 2020-05-22 09:45 | NUR ---
PT BACK FROM CT
[2020-05-22 09:49] LABS: ALANINE AMINOTRANSFERASE 185 U/L (12-78); ALKALINE PHOSPHATASE 78 U/L (45-117); BILIRUBIN,TOTAL 2.5 mg/dL (0.2-1.0); CREATININE 0.82 mg/dL (0.7-1.3); TOTAL PROTEIN 7.8 g/dL (6.4-8.2); TROPONIN I < 0.015 ng/mL (0.000-0.045)
[2020-05-22] MEDS ORDERED: LEVETIRACETAM 1,000 MG in SODIUM CHLORIDE 0.9% 100 ML IV ONE (10:00)
--- NOTE | 2020-05-22 10:05 | NUR ---
MOSHE SITTER REQUESTED FROM [employer]. PT IS CONFUSED AND WILL NOT STAY IN BED
--- NOTE | 2020-05-22 10:19 | NUR ---
EDM TECH SITTING WITH PT FOR SAFETY Addendum: 05/22/20 at 1019 by [email or web address] HARMONIC ANALYST SITTING WITH PT FOR SAFETY
--- NOTE | 2020-05-22 10:21 | NUR ---
PT ATTEMPTED TO USE URINAL TWO TIMES
--- NOTE | 2020-05-22 10:56 | NUR ---
REPORT RECEIVED FROM NOLAN ARRIETA. ASSUMING CARE AT THIS TIME.
--- NOTE | 2020-05-22 11:11 | NUR ---
PT CONTINUES TO ATTEMPT TO GET OUT OF BED AND ASKING FOR SHARI. SITTER AT BEDSIDE FOR FREQUENT REDIRECTION.
[2020-05-22] MEDS ORDERED: SODIUM CHLORIDE 0.9% 1,000 ML IV ONE (11:23)
[2020-05-22] MEDS ORDERED: SODIUM CHLORIDE FLUSH 10ML SYR IVF PRN (11:30)
[2020-05-22] MEDS ORDERED: POLYETHYLENE GLYCOL 17 GM PACKET PO PRN (12:00)
[2020-05-22] MEDS ORDERED: LORazepam 0.5MG TABLET PO PRN (12:00)
[2020-05-22] MEDS ORDERED: LORazepam 1MG TABLET PO PRN ×3 (12:00)
[2020-05-22] MEDS ORDERED: ENALAPRILAT 1.25 MG/ML, 2ML IVPush PRN (12:00)
[2020-05-22] MEDS ORDERED: GABAPENTIN 300 MG CAPSULE PO PRN (12:00)
[2020-05-22] MEDS ORDERED: ONDANSETRON ODT 4 MG PO PRN (12:00)
[2020-05-22] MEDS ORDERED: BISACODYL 10 MG SUPP PR PRN (12:00)
[2020-05-22] MEDS ORDERED: ONDANSETRON 2MG/ML, 2ML IVPush PRN (12:00)
[2020-05-22] MEDS ORDERED: LABETALOL 5MG/ML, 20ML IVPush PRN (12:00)
[2020-05-22] MEDS ORDERED: DOCUSATE 100 MG CAPSULE PO PRN (12:00)
[2020-05-22] MEDS ORDERED: LORazepam 2 MG/ML, 1ML IV PRN ×4 (12:00)
[2020-05-22] MEDS ORDERED: CHLORDIAZEPOXIDE 25 MG CAPSULE ONE (12:52)
[2020-05-22] MEDS: CHLORDIAZEPOXIDE 25 MG CAPSULE PO SCH ×2 (12:55→17:59)
--- NOTE | 2020-05-22 13:00 | NUR ---
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 PT AT ABOUT 75% OF LUNCH.
--- NOTE | 2020-05-22 13:51 | NUR ---
PT TRANSFERRED TO HOSPITAL BED. TWO PERSON CGA TO TRANSFER PT TO CHAIR AND BACK TO BED. PT CAN BEAR WEIGHT, BUT DOESN'T MOVE EXTREMITIES INSTRUCTED. SITTER CONTINUES AT BEDSIDE FOR PT REDIRECTION AND SAFETY.
[2020-05-22] MEDS: MAGNESIUM SULFATE 1 GM, THIAMINE 200 MG, FOLIC ACID 1 MG, MVI ADULT 10 ML in SODIUM CHL... IV SCH (14:22)
--- NOTE | 2020-05-22 15:47 | NUR ---
PT CLEANED UP AND POSITIONED FOR COMFORT. PT NOW SLEEPING. SITTER AT BEDSIDE FOR SAFETY.
--- NOTE | 2020-05-22 16:10 | NUR ---
REPORT GIVEN TO ZAHIRA ARRIETA.
[2020-05-22 16:54] VITALS: BP 142/92
[2020-05-22] MEDS: METOPROLOL TARTRATE 25 MG TAB PO SCH (17:59)
[2020-05-22 18:45] VITALS: BP 163/103
[2020-05-22] MEDS: LEVETIRACETAM 500 MG TABLET PO SCH (20:46)
[2020-05-22] MEDS ORDERED: LISINOPRIL 10 MG TABLET PO SCH (21:00)
[2020-05-22] MEDS: NS + 20MEQ KCL 1,000 ML IV SCH (21:10)
[2020-05-22 22:58] LABS: MICROSCOPIC NOT IND
[2020-05-22 23:13] LABS: AMPHETAMINE SCREEN, URINE Negative (Negative); BARBITURATE SCREEN, URINE Negative (Negative); BENZODIAZEPINE SCREEN, URINE Positive (Negative); CANNABINOID SCREEN, URINE Negative (Negative); COCAINE SCREEN, URINE Negative (Negative); METHADONE SCREEN, URINE Negative (Negative); OPIATE SCREEN, URINE Negative (Negative)
[2020-05-23] MEDS: CHLORDIAZEPOXIDE 25 MG CAPSULE PO SCH ×5 (00:27→23:48)
[2020-05-23 00:48] VITALS: BP 125/75
[2020-05-23 04:36] LABS: ALBUMIN 3.3 g/dL (3.4-5.0); ANION GAP 6 mmol/L (5-15); CALCIUM 8.6 mg/dL (8.5-10.1); CHLORIDE 105 mmol/L (98-107)
[2020-05-23 04:36] LABS: BASOPHILS # (AUTO) 0.01 x10^3/uL (0-0.1); BASOPHILS % (AUTO) 0 % (0-1); EOSINOPHILS # (AUTO) 0.12 x10^3/uL (0-0.4); EOSINOPHILS % (AUTO) 2 % (1-7); LYMPHOCYTES # (AUTO) 1.31 x10^3/uL (1-3.4); LYMPHOCYTES % (AUTO) 21 % (22-44); MD NO; MEAN CORPUSCULAR HEMOGLOBIN 35.2 pg (27.5-34.5); MEAN CORPUSCULAR HGB CONC 33.9 g/dL (33.2-36.2); MEAN PLATELET VOLUME 7.8 fL (7.4-10.4); MONOCYTES # (AUTO) 0.65 x10^3/uL (0.2-0.8); MONOCYTES % (AUTO) 10 % (2-9); NEUTROPHILS % (AUTO) 67 % (42-75); PLATELET COUNT 143 x10^3/uL (130-400); RED BLOOD COUNT 3.16 x10^6/uL (4.38-5.82); RED CELL DISTRIBUTION WIDTH 14.1 % (9.4-14.8)
[2020-05-23 04:41] LABS: ALANINE AMINOTRANSFERASE 139 U/L (12-78); ALKALINE PHOSPHATASE 69 U/L (45-117); BILIRUBIN,TOTAL 1.7 mg/dL (0.2-1.0); TOTAL PROTEIN 6.7 g/dL (6.4-8.2)
[2020-05-23] MEDS: NS + 20MEQ KCL 1,000 ML IV SCH ×3 (05:07→21:24)
[2020-05-23] MEDS: METOPROLOL TARTRATE 25 MG TAB PO SCH ×2 (05:07→17:05)
[2020-05-23 07:00] VITALS: BP 141/94
[2020-05-23] MEDS: TAMSULOSIN 0.4 MG CAP.ER.24H PO SCH (08:38)
[2020-05-23] MEDS: LEVETIRACETAM 500 MG TABLET PO SCH ×2 (08:38→20:02)
[2020-05-23] MEDS ORDERED: POTASSIUM CHLORIDE 20 MEQ in SODIUM CHLORIDE 0.9% 250 ML IV ONE (10:30)
[2020-05-23] MEDS: MULTIVITS,STRESS FORMULA 1 TABLET PO SCH (10:59)
[2020-05-23] MEDS: ZINC SULFATE 220 MG CAPSULE PO SCH (10:59)
[2020-05-23] MEDS: CHOLECALCIFEROL 5,000u TAB PO SCH (10:59)
[2020-05-23 12:20] VITALS: BP 135/91
[2020-05-23] MEDS: MAGNESIUM SULFATE 1 GM, THIAMINE 200 MG, FOLIC ACID 1 MG, MVI ADULT 10 ML in SODIUM CHL... IV SCH (16:25)
[2020-05-23] MEDS: ASCORBIC ACID 500 MG TABLET PO SCH (17:05)
[2020-05-23 19:35] VITALS: BP 127/86
[2020-05-24 01:24] VITALS: BP 119/83
[2020-05-24] MEDS: CHLORDIAZEPOXIDE 25 MG CAPSULE PO SCH ×3 (05:46→18:00)
[2020-05-24 05:50] LABS: ALBUMIN 3.3 g/dL (3.4-5.0); ANION GAP 7 mmol/L (5-15); CALCIUM 8.3 mg/dL (8.5-10.1); CHLORIDE 104 mmol/L (98-107)
[2020-05-24 05:51] LABS: CREATININE 0.69 mg/dL (0.7-1.3)
[2020-05-24] MEDS: NS + 20MEQ KCL 1,000 ML IV SCH ×3 (06:33→20:11)
[2020-05-24] MEDS: METOPROLOL TARTRATE 25 MG TAB PO SCH ×2 (06:33→18:00)
[2020-05-24 06:58] VITALS: BP 154/89
[2020-05-24] MEDS: TAMSULOSIN 0.4 MG CAP.ER.24H PO SCH (08:25)
[2020-05-24] MEDS: MULTIVITS,STRESS FORMULA 1 TABLET PO SCH (08:25)
[2020-05-24] MEDS: ZINC SULFATE 220 MG CAPSULE PO SCH (08:25)
[2020-05-24] MEDS: LEVETIRACETAM 500 MG TABLET PO SCH ×2 (08:25→20:09)
[2020-05-24] MEDS: CHOLECALCIFEROL 5,000u TAB PO SCH (08:25)
[2020-05-24] MEDS: ASCORBIC ACID 500 MG TABLET PO SCH ×2 (08:25→17:00)
[2020-05-24 13:16] VITALS: BP 144/93
[2020-05-24] MEDS: MAGNESIUM SULFATE 1 GM, THIAMINE 200 MG, FOLIC ACID 1 MG, MVI ADULT 10 ML in SODIUM CHL... IV SCH (15:47)
[2020-05-24 19:04] VITALS: BP 138/97
[2020-05-25 01:38] VITALS: BP 133/84
[2020-05-25 04:59] LABS: BASOPHILS # (AUTO) 0.03 x10^3/uL (0-0.1); BASOPHILS % (AUTO) 1 % (0-1); EOSINOPHILS # (AUTO) 0.15 x10^3/uL (0-0.4); EOSINOPHILS % (AUTO) 2 % (1-7); LYMPHOCYTES # (AUTO) 1.25 x10^3/uL (1-3.4); LYMPHOCYTES % (AUTO) 18 % (22-44); MD NO; MEAN CORPUSCULAR HEMOGLOBIN 34.9 pg (27.5-34.5); MEAN CORPUSCULAR HGB CONC 33.1 g/dL (33.2-36.2); MEAN PLATELET VOLUME 7.3 fL (7.4-10.4); MONOCYTES # (AUTO) 0.88 x10^3/uL (0.2-0.8); MONOCYTES % (AUTO) 13 % (2-9); NEUTROPHILS # (AUTO) 4.62 x10^3/uL (1.8-6.8); NEUTROPHILS % (AUTO) 67 % (42-75); PLATELET COUNT 147 x10^3/uL (130-400); RED BLOOD COUNT 3.36 x10^6/uL (4.38-5.82); RED CELL DISTRIBUTION WIDTH 14.8 % (9.4-14.8)
[2020-05-25 05:12] LABS: ALBUMIN 2.9 g/dL (3.4-5.0); ANION GAP 6 mmol/L (5-15); CALCIUM 8.1 mg/dL (8.5-10.1); CHLORIDE 112 mmol/L (98-107)
[2020-05-25 05:13] LABS: CREATININE 0.64 mg/dL (0.7-1.3)
[2020-05-25] MEDS: METOPROLOL TARTRATE 25 MG TAB PO SCH ×2 (05:57→18:43)
[2020-05-25] MEDS: NS + 20MEQ KCL 1,000 ML IV SCH ×3 (06:00→22:52)
[2020-05-25] MEDS: CHLORDIAZEPOXIDE 25 MG CAPSULE PO SCH ×2 (06:00)
[2020-05-25 06:42] VITALS: BP 154/91
[2020-05-25] MEDS: ZINC SULFATE 220 MG CAPSULE PO SCH (08:09)
[2020-05-25] MEDS: CHOLECALCIFEROL 5,000u TAB PO SCH (08:09)
[2020-05-25] MEDS: ASCORBIC ACID 500 MG TABLET PO SCH ×2 (08:09→18:43)
[2020-05-25] MEDS: LEVETIRACETAM 500 MG TABLET PO SCH ×2 (08:09→20:41)
[2020-05-25] MEDS: MULTIVITS,STRESS FORMULA 1 TABLET PO SCH (08:10)
[2020-05-25] MEDS: TAMSULOSIN 0.4 MG CAP.ER.24H PO SCH (08:10)
[2020-05-25 12:41] VITALS: BP 126/77
[2020-05-25 18:46] VITALS: BP 142/92
[2020-05-26 01:14] VITALS: BP 154/89
[2020-05-26] MEDS: NS + 20MEQ KCL 1,000 ML IV SCH ×3 (06:27→21:44)
[2020-05-26] MEDS: METOPROLOL TARTRATE 25 MG TAB PO SCH ×2 (06:27→17:41)
[2020-05-26 07:58] VITALS: BP 156/86
[2020-05-26] MEDS: TAMSULOSIN 0.4 MG CAP.ER.24H PO SCH (08:36)
[2020-05-26] MEDS: ZINC SULFATE 220 MG CAPSULE PO SCH (08:36)
[2020-05-26] MEDS: MULTIVITS,STRESS FORMULA 1 TABLET PO SCH (08:36)
[2020-05-26] MEDS: ASCORBIC ACID 500 MG TABLET PO SCH ×2 (08:36→17:41)
[2020-05-26] MEDS: LEVETIRACETAM 500 MG TABLET PO SCH ×2 (08:36→20:25)
[2020-05-26] MEDS: CHOLECALCIFEROL 5,000u TAB PO SCH (08:37)
[2020-05-26 13:01] VITALS: BP 167/99
[2020-05-26 18:39] VITALS: BP 163/88
[2020-05-26] MEDS: ACETAMINOPHEN 325 MG TABLET PO PRN (20:25)
[2020-05-27 02:01] VITALS: BP 165/96
[2020-05-27] MEDS: NS + 20MEQ KCL 1,000 ML IV SCH (06:13)
[2020-05-27] MEDS: METOPROLOL TARTRATE 25 MG TAB PO SCH ×2 (06:13→18:32)
[2020-05-27 06:57] VITALS: BP 162/92
[2020-05-27] MEDS: ZINC SULFATE 220 MG CAPSULE PO SCH (08:30)
[2020-05-27] MEDS: LEVETIRACETAM 500 MG TABLET PO SCH ×2 (08:30→20:44)
[2020-05-27] MEDS: ASCORBIC ACID 500 MG TABLET PO SCH (08:30)
[2020-05-27] MEDS: CHOLECALCIFEROL 5,000u TAB PO SCH (08:30)
[2020-05-27] MEDS: TAMSULOSIN 0.4 MG CAP.ER.24H PO SCH (08:30)
[2020-05-27] MEDS: MULTIVITS,STRESS FORMULA 1 TABLET PO SCH (08:30)
[2020-05-27 13:55] VITALS: BP 143/83
[2020-05-27] MEDS: AMLODIPINE 5 MG TABLET PO SCH (14:33)
[2020-05-27] MEDS: THIAMINE 100MG TABLET PO SCH (14:33)
[2020-05-27] MEDS: FOLIC ACID 1 MG TABLET PO SCH (14:33)
[2020-05-27 19:03] VITALS: BP 128/83
[2020-05-27] MEDS ORDERED: QUETIAPINE 25MG TABLET PO SCH (21:00)
[2020-05-28 01:41] VITALS: BP 164/90
[2020-05-28] MEDS: METOPROLOL TARTRATE 25 MG TAB PO SCH ×2 (05:24→18:23)
[2020-05-28 06:36] VITALS: BP 138/84
[2020-05-28] MEDS: TAMSULOSIN 0.4 MG CAP.ER.24H PO SCH (08:43)
[2020-05-28] MEDS: LEVETIRACETAM 500 MG TABLET PO SCH ×2 (08:43→20:05)
[2020-05-28] MEDS: MULTIVITS,STRESS FORMULA 1 TABLET PO SCH (08:43)
[2020-05-28] MEDS: THIAMINE 100MG TABLET PO SCH (08:43)
[2020-05-28] MEDS: FOLIC ACID 1 MG TABLET PO SCH (08:43)
[2020-05-28] MEDS: AMLODIPINE 5 MG TABLET PO SCH (08:43)
[2020-05-28 12:03] VITALS: BP 129/83
[2020-05-28 12:28] LABS: CHLORIDE 109 mmol/L (98-107)
[2020-05-28 12:30] LABS: MEAN CORPUSCULAR HEMOGLOBIN 35.1 pg (27.5-34.5); MEAN CORPUSCULAR HGB CONC 33.6 g/dL (33.2-36.2); MEAN PLATELET VOLUME 7.1 fL (7.4-10.4); PLATELET COUNT 258 x10^3/uL (130-400); RED BLOOD COUNT 3.58 x10^6/uL (4.38-5.82); RED CELL DISTRIBUTION WIDTH 14.9 % (9.4-14.8)
[2020-05-28 12:47] LABS: ALANINE AMINOTRANSFERASE 115 U/L (12-78); ALBUMIN 3.7 g/dL (3.4-5.0); ALKALINE PHOSPHATASE 96 U/L (45-117); ANION GAP 4 mmol/L (5-15); BILIRUBIN,TOTAL 0.9 mg/dL (0.2-1.0); CALCIUM 9.9 mg/dL (8.5-10.1); CREATININE 0.84 mg/dL (0.7-1.3); TOTAL PROTEIN 8.1 g/dL (6.4-8.2)
[2020-05-28 13:02] LABS: MD YES
[2020-05-28 13:04] LABS: BAND#(MANUAL) 0.16 x10^3/uL; BANDS%(MANUAL) 3 % (0-7); BASOS#(MANUAL) 0.05 x10^3/uL (0-0.1); BASOS% (MANUAL) 1 % (0-1); EOS#(MANUAL) 0.05 x10^3/uL (0.0-0.4); EOS% (MANUAL) 1 % (1-7); LYMPH#(MANUAL) 1.64 x10^3/uL (1-3.4); LYMPHS% (MANUAL) 31 % (22-44); MONOS#(MANUAL) 0.48 x10^3/uL (0.3-2.7); MONOS% (MANUAL) 9 % (2-9); SEG#(MANUAL) 2.92 x10^3/uL (1.8-6.8); SEGS% (MANUAL) 55 % (42-75)
[2020-05-28 13:05] LABS: <PLATELET ESTIMATE> ADEQUATE; <PLT MORPHOLOGY> NORMAL PLT MORPH; ANISOCYTOSIS 1+; POLYCHROMASIA 1+
[2020-05-28 18:21] VITALS: BP 137/86
[2020-05-28] MEDS: QUETIAPINE 25MG TABLET PO SCH (20:05)
[2020-05-29 02:11] VITALS: BP 126/82
[2020-05-29] MEDS: METOPROLOL TARTRATE 25 MG TAB PO SCH ×2 (05:20→18:37)
[2020-05-29 07:26] VITALS: BP 119/71
[2020-05-29] MEDS: FOLIC ACID 1 MG TABLET PO SCH (08:50)
[2020-05-29] MEDS: THIAMINE 100MG TABLET PO SCH (08:51)
[2020-05-29] MEDS: LEVETIRACETAM 500 MG TABLET PO SCH ×2 (08:51→21:42)
[2020-05-29] MEDS: AMLODIPINE 5 MG TABLET PO SCH (08:51)
[2020-05-29] MEDS: TAMSULOSIN 0.4 MG CAP.ER.24H PO SCH (08:51)
[2020-05-29] MEDS: MULTIVITS,STRESS FORMULA 1 TABLET PO SCH (08:51)
[2020-05-29 13:46] VITALS: BP 112/68
[2020-05-29 18:00] VITALS: BP 104/67
[2020-05-29] MEDS: QUETIAPINE 25MG TABLET PO SCH (21:42)
[2020-05-30 02:00] VITALS: BP 139/72
[2020-05-30] MEDS: METOPROLOL TARTRATE 25 MG TAB PO SCH ×2 (05:42→17:44)
[2020-05-30 06:06] VITALS: BP 123/79
[2020-05-30] MEDS: MULTIVITS,STRESS FORMULA 1 TABLET PO SCH (08:03)
[2020-05-30] MEDS: THIAMINE 100MG TABLET PO SCH (08:03)
[2020-05-30] MEDS: AMLODIPINE 5 MG TABLET PO SCH (08:04)
[2020-05-30] MEDS: FOLIC ACID 1 MG TABLET PO SCH (08:04)
[2020-05-30] MEDS: LEVETIRACETAM 500 MG TABLET PO SCH ×2 (08:04→20:53)
[2020-05-30] MEDS: TAMSULOSIN 0.4 MG CAP.ER.24H PO SCH (08:04)
[2020-05-30 12:12] VITALS: BP 105/64
[2020-05-30 14:44] LABS: MICROSCOPIC NOT IND
[2020-05-30 17:30] VITALS: BP 133/83
[2020-05-30 18:55] VITALS: BP 95/59
[2020-05-30] MEDS: QUETIAPINE 25MG TABLET PO SCH (20:53)
[2020-05-31 00:27] VITALS: BP 106/68
[2020-05-31] MEDS ORDERED: LORazepam 0.5MG TABLET PO PRN (00:30)
[2020-05-31] MEDS ORDERED: LORazepam 1MG TABLET PO PRN ×4 (00:30)
[2020-05-31] MEDS ORDERED: LORazepam 2 MG/ML, 1ML IV PRN ×4 (00:30)
[2020-05-31] MEDS: LORazepam 2 MG/ML, 1ML IV PRN ×2 (00:48→03:52)
[2020-05-31 06:28] LABS: BASOPHILS % (AUTO) 1 % (0-1); EOSINOPHILS % (AUTO) 2 % (1-7); LYMPHOCYTES % (AUTO) 20 % (22-44); MEAN CORPUSCULAR HEMOGLOBIN 35.3 pg (27.5-34.5); MEAN CORPUSCULAR HGB CONC 34.2 g/dL (33.2-36.2); MEAN PLATELET VOLUME 7.1 fL (7.4-10.4); MONOCYTES % (AUTO) 22 % (2-9); NEUTROPHILS % (AUTO) 55 % (42-75); PLATELET COUNT 301 x10^3/uL (130-400); RED BLOOD COUNT 3.27 x10^6/uL (4.38-5.82); RED CELL DISTRIBUTION WIDTH 14.5 % (9.4-14.8)
[2020-05-31 06:35] LABS: ALANINE AMINOTRANSFERASE 75 U/L (12-78); ALBUMIN 3.3 g/dL (3.4-5.0); ANION GAP 6 mmol/L (5-15); CALCIUM 8.9 mg/dL (8.5-10.1); CHLORIDE 106 mmol/L (98-107); CREATININE 0.79 mg/dL (0.7-1.3)
[2020-05-31 06:40] LABS: ALKALINE PHOSPHATASE 79 U/L (45-117); BILIRUBIN,TOTAL 0.7 mg/dL (0.2-1.0); TOTAL PROTEIN 7.4 g/dL (6.4-8.2)
[2020-05-31 07:19] VITALS: BP 133/77
[2020-05-31 08:21] LABS: MD SCAN
[2020-05-31] MEDS ORDERED: INSTRUCTION SEE COMMENTS XX PRN (09:00)
[2020-05-31] MEDS ORDERED: PHARMACY INSTRUCTION MC PRN (09:00)
[2020-05-31] MEDS: THIAMINE 100MG TABLET PO SCH (09:00)
[2020-05-31] MEDS: LEVETIRACETAM 500 MG TABLET PO SCH ×2 (10:20→20:55)
[2020-05-31] MEDS: METOPROLOL TARTRATE 25 MG TAB PO SCH ×2 (10:20→18:10)
[2020-05-31] MEDS: MULTIVITS,STRESS FORMULA 1 TABLET PO SCH (10:20)
[2020-05-31] MEDS: TAMSULOSIN 0.4 MG CAP.ER.24H PO SCH (10:20)
[2020-05-31] MEDS: AMLODIPINE 5 MG TABLET PO SCH (10:20)
[2020-05-31] MEDS: FOLIC ACID 1 MG TABLET PO SCH (10:20)
[2020-05-31 12:11] VITALS: BP 111/68
[2020-05-31 20:22] VITALS: BP 124/77
[2020-05-31] MEDS: MELATONIN 5 MG TABLET PO SCH (20:55)
[2020-05-31] MEDS: HALOPERIDOL 5 MG/ML IV SCH (20:55)
[2020-05-31] MEDS ORDERED: MELATONIN 3 MG TABLET PO SCH ×2 (21:00)
[2020-06-01 01:32] VITALS: BP 124/78
[2020-06-01] MEDS: METOPROLOL TARTRATE 25 MG TAB PO SCH ×2 (06:05→17:18)
[2020-06-01 07:09] VITALS: BP 129/85
[2020-06-01] MEDS: MULTIVITS,STRESS FORMULA 1 TABLET PO SCH (08:12)
[2020-06-01] MEDS: ACETAMINOPHEN 325 MG TABLET PO PRN ×4 (08:12→20:43)
[2020-06-01] MEDS: AMLODIPINE 5 MG TABLET PO SCH (08:12)
[2020-06-01] MEDS: TAMSULOSIN 0.4 MG CAP.ER.24H PO SCH (08:12)
[2020-06-01] MEDS: THIAMINE 100MG TABLET PO SCH (08:12)
[2020-06-01] MEDS: LEVETIRACETAM 500 MG TABLET PO SCH ×2 (08:12→20:32)
[2020-06-01] MEDS: FOLIC ACID 1 MG TABLET PO SCH (08:12)
[2020-06-01 14:03] VITALS: BP 130/80
[2020-06-01 18:31] VITALS: BP 116/68
[2020-06-01] MEDS: MELATONIN 5 MG TABLET PO SCH (20:32)
[2020-06-01] MEDS: HALOPERIDOL 5 MG/ML IV SCH (20:32)
[2020-06-02] MEDS: ACETAMINOPHEN 325 MG TABLET PO PRN ×4 (04:19→20:37)
[2020-06-02 06:04] VITALS: BP 112/74
[2020-06-02] MEDS: METOPROLOL TARTRATE 25 MG TAB PO SCH ×2 (06:06→17:52)
[2020-06-02 06:46] VITALS: BP 114/74
[2020-06-02] MEDS: THIAMINE 100MG TABLET PO SCH (07:59)
[2020-06-02] MEDS: MULTIVITS,STRESS FORMULA 1 TABLET PO SCH (08:00)
[2020-06-02] MEDS: LEVETIRACETAM 500 MG TABLET PO SCH ×2 (08:00→20:35)
[2020-06-02] MEDS: FOLIC ACID 1 MG TABLET PO SCH (08:00)
[2020-06-02] MEDS: TAMSULOSIN 0.4 MG CAP.ER.24H PO SCH (08:00)
[2020-06-02] MEDS: AMLODIPINE 5 MG TABLET PO SCH (08:00)
[2020-06-02 12:05] VITALS: BP 109/72
[2020-06-02 17:50] VITALS: BP 114/72
[2020-06-02 18:39] VITALS: BP 120/78
[2020-06-02] MEDS: MELATONIN 5 MG TABLET PO SCH (20:35)
[2020-06-02] MEDS: HALOPERIDOL 5 MG/ML IV SCH (20:35)
[2020-06-03 03:21] VITALS: BP 116/72
[2020-06-03 05:38] VITALS: BP 117/75
[2020-06-03] MEDS: ACETAMINOPHEN 325 MG TABLET PO PRN ×2 (05:40→20:25)
[2020-06-03] MEDS: METOPROLOL TARTRATE 25 MG TAB PO SCH ×2 (05:40→17:23)
[2020-06-03 06:02] LABS: ALANINE AMINOTRANSFERASE 43 U/L (12-78); ALBUMIN 3.1 g/dL (3.4-5.0); CALCIUM 8.8 mg/dL (8.5-10.1); CREATININE 0.81 mg/dL (0.7-1.3)
[2020-06-03 06:04] LABS: ALKALINE PHOSPHATASE 81 U/L (45-117); BILIRUBIN,TOTAL 0.7 mg/dL (0.2-1.0); TOTAL PROTEIN 7.6 g/dL (6.4-8.2)
[2020-06-03 06:12] LABS: BASOPHILS % (AUTO) 1 % (0-1); EOSINOPHILS % (AUTO) 1 % (1-7); LYMPHOCYTES % (AUTO) 23 % (22-44); MEAN CORPUSCULAR HEMOGLOBIN 34.9 pg (27.5-34.5); MEAN CORPUSCULAR HGB CONC 33.7 g/dL (33.2-36.2); MEAN PLATELET VOLUME 7.3 fL (7.4-10.4); MONOCYTES % (AUTO) 16 % (2-9); NEUTROPHILS % (AUTO) 59 % (42-75); PLATELET COUNT 362 x10^3/uL (130-400); RED BLOOD COUNT 3.35 x10^6/uL (4.38-5.82)
[2020-06-03 06:34] LABS: ANION GAP 4 mmol/L (5-15); CHLORIDE 105 mmol/L (98-107)
[2020-06-03 06:47] LABS: MD SCAN
[2020-06-03 07:49] VITALS: BP 129/82
[2020-06-03] MEDS: LEVETIRACETAM 500 MG TABLET PO SCH ×2 (08:09→20:25)
[2020-06-03] MEDS: MULTIVITS,STRESS FORMULA 1 TABLET PO SCH (08:09)
[2020-06-03] MEDS: FOLIC ACID 1 MG TABLET PO SCH (08:09)
[2020-06-03] MEDS: TAMSULOSIN 0.4 MG CAP.ER.24H PO SCH (08:09)
[2020-06-03] MEDS: THIAMINE 100MG TABLET PO SCH (08:09)
[2020-06-03] MEDS: AMLODIPINE 5 MG TABLET PO SCH (08:09)
[2020-06-03 12:43] VITALS: BP 110/73
[2020-06-03 19:14] VITALS: BP 119/71
[2020-06-03] MEDS: HALOPERIDOL 5 MG TABLET PO SCH (20:25)
[2020-06-03] MEDS: MELATONIN 5 MG TABLET PO SCH (20:25)
[2020-06-04 03:39] VITALS: BP 129/78
[2020-06-04] MEDS: METOPROLOL TARTRATE 25 MG TAB PO SCH ×2 (05:55→18:17)
[2020-06-04 08:49] VITALS: BP 116/70
[2020-06-04] MEDS: MULTIVITS,STRESS FORMULA 1 TABLET PO SCH (09:37)
[2020-06-04] MEDS: TAMSULOSIN 0.4 MG CAP.ER.24H PO SCH (09:37)
[2020-06-04] MEDS: FOLIC ACID 1 MG TABLET PO SCH (09:37)
[2020-06-04] MEDS: AMLODIPINE 5 MG TABLET PO SCH (09:37)
[2020-06-04] MEDS: LEVETIRACETAM 500 MG TABLET PO SCH ×2 (09:37→20:18)
[2020-06-04] MEDS: THIAMINE 100MG TABLET PO SCH (09:37)
[2020-06-04 13:00] VITALS: BP 106/55
[2020-06-04 19:09] VITALS: BP 111/68
[2020-06-04] MEDS: MELATONIN 5 MG TABLET PO SCH (20:18)
[2020-06-04] MEDS: HALOPERIDOL 5 MG TABLET PO SCH (20:18)
[2020-06-05 01:01] VITALS: BP 107/75
[2020-06-05 06:07] VITALS: BP 111/70
[2020-06-05] MEDS: METOPROLOL TARTRATE 25 MG TAB PO SCH ×2 (06:09→17:23)
[2020-06-05] MEDS: MULTIVITS,STRESS FORMULA 1 TABLET PO SCH (07:47)
[2020-06-05] MEDS: AMLODIPINE 5 MG TABLET PO SCH (07:47)
[2020-06-05] MEDS: FOLIC ACID 1 MG TABLET PO SCH (07:47)
[2020-06-05] MEDS: LEVETIRACETAM 500 MG TABLET PO SCH ×2 (07:47→20:47)
[2020-06-05] MEDS: THIAMINE 100MG TABLET PO SCH (07:47)
[2020-06-05] MEDS: TAMSULOSIN 0.4 MG CAP.ER.24H PO SCH (07:47)
[2020-06-05] MEDS: ACETAMINOPHEN 325 MG TABLET PO PRN ×2 (07:53→20:47)
[2020-06-05 13:11] VITALS: BP 104/66
[2020-06-05 19:20] VITALS: BP 107/70
[2020-06-05] MEDS: MELATONIN 5 MG TABLET PO SCH (20:47)
[2020-06-05] MEDS: HALOPERIDOL 5 MG TABLET PO SCH (20:55)
[2020-06-06 01:28] VITALS: BP 119/82
[2020-06-06] MEDS: ACETAMINOPHEN 325 MG TABLET PO PRN (05:54)
[2020-06-06] MEDS: METOPROLOL TARTRATE 25 MG TAB PO SCH (05:54)
[2020-06-06] MEDS: AMLODIPINE 5 MG TABLET PO SCH (08:01)
[2020-06-06] MEDS: FOLIC ACID 1 MG TABLET PO SCH (08:01)
[2020-06-06] MEDS: THIAMINE 100MG TABLET PO SCH (08:01)
[2020-06-06] MEDS: LEVETIRACETAM 500 MG TABLET PO SCH (08:01)
[2020-06-06] MEDS: MULTIVITS,STRESS FORMULA 1 TABLET PO SCH (08:01)
[2020-06-06] MEDS: TAMSULOSIN 0.4 MG CAP.ER.24H PO SCH (08:01)
[2020-06-06 08:07] VITALS: BP 129/83
[2020-06-06] MEDS ORDERED: AMLO-150 PO (10:00)
[2020-06-06] MEDS ORDERED: LEVE500T53 PO (10:00)
[2020-06-06] MEDS ORDERED: MULT-449 PO (10:00)
[2020-06-06] MEDS ORDERED: THIA100T67 PO (10:00)
[2020-06-06] MEDS ORDERED: TAMS-11 PO (10:00)
[2020-06-06] MEDS ORDERED: FOLI-17 PO (10:00)
[2020-06-06] MEDS ORDERED: METO25TA35 PO (10:00)
== END 2020-06-06 13:47 | disposition home or self-care (01) | DRG 896 ==
LOC: ED 11:57 → EDIP 12:00 → 4WST 17:59 → DCLOUNGE 06-06 13:44
PROVIDERS: ADMIT Hospitalist; ATTEND Family Medicine
DX: F10.231 Alcohol dependence with withdrawal delirium (principal); G93.41 Metabolic encephalopathy; E87.6 Hypokalemia; E78.5 Hyperlipidemia, unspecified; D50.9 Iron deficiency anemia, unspecified; I10 Essential (primary) hypertension; I25.10 Atherosclerotic heart disease of native coronary artery without angina pectoris; K59.00 Constipation, unspecified; N40.0 Benign prostatic hyperplasia without lower urinary tract symptoms; R56.9 Unspecified convulsions; Z66 Do not resuscitate; Z87.891 Personal history of nicotine dependence; Z91.14 Patient's other noncompliance with medication regimen; Z95.5 Presence of coronary angioplasty implant and graft
CPT/HCPCS: 36415; 70450; 70551; 80048; 80053; 80069; 80307; 81003; 82040; 82140; 82728; 83540; 83550; 83735; 84100; 84484; 85025; 85610; 85730; 93005; 96365; 99285; G0378; J1953; J3411; J3475; J3480; 92522-GN; J1630; J2060; J7030; J7050

== ENCOUNTER 2020-08-08 12:03 | Emergency (ER) | payer MEDICARE ==
[~2020-08-08] VITALS: Ht 188 cm; Wt 63.6 kg
[~2020-08-08 12:03] MED LIST changes: +AMLO-150 PO; +FOLI-17 PO; +TAMS-11 PO
[2020-08-08] MEDS ORDERED: SODIUM CHLORIDE 0.9% 1,000ML IVBOLUS ONE ×2 (12:30→13:30)
[2020-08-08] MEDS ORDERED: LORazepam 2 MG/ML, 1ML IVPush ONE (12:30)
[2020-08-08] MEDS ORDERED: THIAMINE 100 MG in SODIUM CHLORIDE 0.9% 50 ML IVPB ONE (12:30)
[2020-08-08] MEDS ORDERED: SODIUM CHLORIDE FLUSH 10ML SYR IVF ONE (12:30)
[2020-08-08 12:47] LABS: BASOPHILS % (AUTO) 1 % (0-1); EOSINOPHILS % (AUTO) 1 % (1-7); LYMPHOCYTES % (AUTO) 6 % (22-44); MEAN CORPUSCULAR HEMOGLOBIN 35.8 pg (27.5-34.5); MEAN CORPUSCULAR HGB CONC 34.2 g/dL (33.2-36.2); MEAN PLATELET VOLUME 7.8 fL (7.4-10.4); MONOCYTES % (AUTO) 10 % (2-9); NEUTROPHILS % (AUTO) 83 % (42-75); PLATELET COUNT 143 x10^3/uL (130-400); RED BLOOD COUNT 3.43 x10^6/uL (4.38-5.82); RED CELL DISTRIBUTION WIDTH 16.6 % (9.4-14.8)
[2020-08-08 12:52] LABS: ALANINE AMINOTRANSFERASE 277 U/L (12-78); ALBUMIN 4.1 g/dL (3.4-5.0); ANION GAP 16 mmol/L (5-15); CALCIUM 8.5 mg/dL (8.5-10.1); CHLORIDE 100 mmol/L (98-107); CREATININE 1.18 mg/dL (0.7-1.3)
[2020-08-08 12:54] LABS: ALKALINE PHOSPHATASE 143 U/L (45-117); BILIRUBIN,TOTAL 2.2 mg/dL (0.2-1.0); TOTAL PROTEIN 8.9 g/dL (6.4-8.2)
[2020-08-08 12:58] LABS: MD SCAN
[2020-08-08] MEDS ORDERED: THIAMINE 100 MG/ML, 2ML ONE (12:59)
[2020-08-08] MEDS ORDERED: PLEASE ENTER HEIGHT AND WEIGHT MC SCH (13:00)
[2020-08-08] MEDS ORDERED: LORazepam 2 MG/ML, 1ML ONE (13:01)
--- NOTE | 2020-08-08 13:30 | NUR ---
PATIENT REPORTS INCREASED COMFORT AFTER ATIVAN AND 500 ML NS. NO NEEDS AT THIS TIME, WILL CONTINUE TO MONITOR.
--- NOTE | 2020-08-08 14:20 | NUR ---
PATIENT AMBULATED WITHOUT ASSISTANCE, DENIES CP, SHOB, HEADACHE, DIZZINESS.
[2020-08-08 15:19] VITALS: BP 140/72
== END 2020-08-08 15:23 | disposition home or self-care (01) ==
LOC: ED 14:09
DX: F10.239 Alcohol dependence with withdrawal, unspecified (principal); R11.2 Nausea with vomiting, unspecified; I10 Essential (primary) hypertension; R94.31 Abnormal electrocardiogram [ECG] [EKG]; Z98.61 Coronary angioplasty status; Y90.0 Blood alcohol level of less than 20 mg/100 ml
CPT/HCPCS: 36415; 70450; 71045; 80053; 80074; 80320; 82140; 82962; 83605; 83690; 85025; 93005; 96361; 96374; 99285; J2060; J7030; G0480

== ENCOUNTER 2021-03-04 14:42 | Outpatient (CLI) | payer MEDICARE ==
[~2021-03-04 14:42] MED LIST changes: -ASPI-515 PO; +ASPI-963 PO; -FOLI-17 PO; +FOLI1TAB32 PO; +GEMF-31 PO; -GEMF600T8 PO; +HYDR-2214 PO; -HYDR-3240 PO; -OXYC-302 PO; -OXYC-307 PO; +OXYC-380 PO; +OXYC1TAB14 PO
== END 2021-03-04 23:59 | disposition home or self-care (01) ==
LOC: CFH 14:42
PROVIDERS: ATTEND Registered Nurse
DX: S06.5X0A Traumatic subdural hemorrhage without loss of consciousness, initial encounter (principal); X58.XXXA Exposure to other specified factors, initial encounter; Y93.89 Activity, other specified; Y92.89 Other specified places as the place of occurrence of the external cause; Y99.8 Other external cause status
CPT/HCPCS: 70450